=== PATIENT | female | born 1960 | race Asian ===

== ENCOUNTER 2017-08-03 11:12 | Inpatient (IN) | payer OTHER ==
[~2017-08-03] VITALS: Ht 160 cm; Wt 43.9 kg
[2017-08-03] MEDS ORDERED: SODIUM CHLORIDE 0.9% 1L BAG IV* STA ×2 (11:47→13:17)
[2017-08-03] MEDS ORDERED: ACETAMINOPHEN 500 MG TAB PO STA (11:47)
[2017-08-03] MEDS ORDERED: CEFEPIME 2GM/50 ML (PMX) 50 ML IVPB STA (11:47)
[2017-08-03] MEDS ORDERED: VANCOMYCIN 1 GM (PMX) 250 ML IVPB ONE (12:00)
[2017-08-03 12:26] LABS: BASOPHILS % 0.1 % (0.0-2.0); EOSINOPHILS % 0.1 % (0.0-7.0); HEMATOCRIT 35.6 % (37.0-47.0); HEMOGLOBIN 11.5 g/dl (12.0-16.0); LYMPHOCYTES % 23.7 % (15.0-51.0); MEAN CORPUSCULAR HEMOGLOBIN 27.6 pg (29.0-33.0); MEAN CORPUSCULAR HGB CONC 32.3 g/dl (32.0-37.0); MEAN CORPUSCULAR VOLUME 85.6 fl (82.0-101.0); MEAN PLATELET VOLUME 9.2 fl (7.4-10.4); MONOCYTE # 1.2 10^3/ul (0.3-0.9); MONOCYTES % 13.9 % (0.0-11.0); NEUTROPHIL # 5.2 10^3/ul (1.6-7.5); NEUTROPHILS % 61.5 % (39.0-77.0); PLATELET COUNT 481 10^3/UL (140-415); RED BLOOD COUNT 4.16 10^6/ul (4.20-5.40); RED CELL DISTRIBUTION WIDTH 14.4 % (11.5-14.5); WHITE BLOOD COUNT 8.4 10^3/ul (4.8-10.8)
[2017-08-03 12:36] LABS: ADD UMIC YES; UR ASCORBIC ACID NEGATIVE (NEGATIVE); UR BACTERIA FEW /HPF (NONE SEEN); UR BILIRUBIN (Dip) NEGATIVE (NEGATIVE); UR BLOOD (Dip) NEGATIVE (NEGATIVE); UR CLARITY SLIGHTLY CLOUDY (CLEAR); UR COLOR YELLOW (YELLOW); UR GLUCOSE (Dip) NEGATIVE (NEGATIVE); UR KETONES (Dip) NEGATIVE (NEGATIVE); UR LEUKOCYTE ESTERASE (Dip) TRACE Leu/ul (NEGATIVE); UR MUCUS FEW /HPF (NONE SEEN); UR NITRITE (Dip) NEGATIVE (NEGATIVE); UR RBC 0 /HPF (0-5); UR TOTAL PROTEIN (Dip) 1+ mg/dl (NEGATIVE); UR UROBILINOGEN (Dip) NEGATIVE (NEGATIVE)
[2017-08-03 12:39] LABS: ALBUMIN 2.9 g/dl (3.3-4.9); ALBUMIN/GLOBULIN RATIO 0.5; BILIRUBIN,INDIRECT 0.6 mg/dl (0-1.1); BILIRUBIN,TOTAL 0.6 mg/dl (0.2-1.3); CALCIUM 7.7 mg/dl (8.4-10.2); CREATININE 0.5 mg/dl (0.44-1.00); TOTAL PROTEIN 8.6 g/dl (6.1-8.1)
[2017-08-03 12:49] LABS: INR 1.16; PROTIME 14.9 Sec (12.2-14.2); PT RATIO 1.2
[2017-08-03 12:50] LABS: PARTIAL THROMBOPLASTIN TIME 44.5 Sec (25.0-35.0)
[2017-08-03 13:06] LABS: TROPONIN-I 0.058 ng/ml (0.00-0.12)
--- NOTE | 2017-08-03 13:08 | RADRPT ---
PROCEDURE: XR Chest. CLINICAL INDICATION: Sepsis. TECHNIQUE: Single frontal view. COMPARISON: No prior study is available for comparison. FINDINGS: The lungs are clear. The heart size is normal. There is calcification in the aorta consistent with atherosclerosis. There is no pleural effusion. There is no pneumothorax. IMPRESSION: 1. Atherosclerosis. 2. Otherwise normal chest x-ray. RPTAT: QQ .Scott Nair MD, MD Date Time Electronically viewed and signed by .Scott Nair MD, MD on 08/03/2017 13:08 .R/
--- NOTE | 2017-08-03 13:26 | ERD ---
ER Documentation Chief Complaint Chief Complaint dizziness, no appetite, weak HPI This is a 56-year-old female with past medical history of iron deficiency anemia and hypothyroidism. The patient takes Zyloprim as an antacid. She presents to the emergency department today stating that for the past several months she has been extremely weak had a decrease in appetite dizzy and has had a headache. All of the symptoms have been present for roughly 3 months. She has had a 30 pound weight loss in that time. She had no frequency urgency or dysuria. She denies any abdominal pain. She denies any changes in vision. She has no changes in her speech and has not appeared to be more confused. She denies any neck pain. She does indicate that over the past week she has had a tactile fever with shaking and chills. She was seen by her primary care physician and placed on low-dose steroids but is not currently on antibiotics. They did blood work and she was told that she was anemic but did not require a blood transfusion. She denies a productive or nonproductive cough. She has no shortness of breath at rest or exertion. She denies any recent travel, no prolonged immobilization and no chest pain or pressure that radiates to the neck arm back or jaw. ROS All systems reviewed and are negative except as per history of present illness. Allergies Allergies: Coded Allergies: No Known Allergy (Unverified , 08/03/17) PMhx/Soc Hx Miscellaneous Medical Probl: Yes (hyperthyroid, anemic) Hx Alcohol Use: No Hx Substance Use: No Hx Tobacco Use: No Smoking Status: Never smoker Physical Exam Vitals Vital Signs Date Time Temp Pulse Resp B/P Pulse Ox O2 Delivery O2 Flow Rate FiO2 08/03/17 13:29 100.4 85 18 90/65 100 08/03/17 12:12 101.6 80 18 86/61 98 Room Air 08/03/17 11:17 100.8 111 20 97/52 100 Physical Exam Const: [] Head: Atraumatic Eyes: Normal Conjunctiva ENT: Normal External Ears, Nose and Mouth. Neck: Full range of motion..~ No meningismus. Resp: Clear to auscultation bilaterally Cardio: Regular rate and rhythm, no murmurs Abd: Soft, non tender, non distended. Normal bowel sounds Skin: No petechiae or rashes Back: No midline or flank tenderness Ext: No cyanosis, or edema Neur: Awake and alert Psych: Normal Mood and Affect Result Diagram: 08/03/17 1120 08/03/17 1130 Results 24 hrs Laboratory Tests Test 08/03/17 11:20 08/03/17 11:30 08/03/17 12:00 White Blood Count 8.410^3/ul Red Blood Count 4.1610^6/ul Hemoglobin 11.5g/dl Hematocrit 35.6% Mean Corpuscular Volume 85.6fl Mean Corpuscular Hemoglobin 27.6pg Mean Corpuscular Hemoglobin Concent 32.3g/dl Red Cell Distribution Width 14.4% Platelet Count 61152^3/UL Mean Platelet Volume 9.2fl Neutrophils % 61.5% Lymphocytes % 23.7% Monocytes % 13.9% Eosinophils % 0.1% Basophils % 0.1% Nucleated Red Blood Cells % 0.0/100WBC Neutrophils # 5.210^3/ul Lymphocytes # 2.010^3/ul Monocytes # 1.210^3/ul Eosinophils # 0.010^3/ul Basophils # 0.010^3/ul Nucleated Red Blood Cells # 0.010^3/ul Prothrombin Time 14.9Sec Prothrombin Time Ratio 1.2 INR International Normalized Ratio 1.16 Activated Partial Thromboplast Time 44.5Sec Sodium Level 128mmol/L Potassium Level 4.0mmol/L Chloride Level 97mmol/L Carbon Dioxide Level 26mmol/L Anion Gap 9 Blood Urea Nitrogen 14mg/dl Creatinine 0.50mg/dl Glucose Level 98mg/dl Lactic Acid Level 2.2mmol/L Calcium Level 7.7mg/dl Total Bilirubin 0.6mg/dl Direct Bilirubin 0.00mg/dl Indirect Bilirubin 0.6mg/dl Aspartate Amino Transf (AST/SGOT) 69IU/L Alanine Aminotransferase (ALT/SGPT) 36IU/L Alkaline Phosphatase 137IU/L Troponin I 0.058ng/ml Total Protein 8.6g/dl Albumin 2.9g/dl Globulin 5.70g/dl Albumin/Globulin Ratio 0.50 Amylase Level 95U/L Lipase 142U/L Urine Color YELLOW Urine Clarity SLIGHTLY CLOUDY Urine pH 6.0 Urine Specific [place] 1.010 Urine Ketones NEGATIVEmg/dL Urine Nitrite NEGATIVEmg/dL Urine Bilirubin NEGATIVEmg/dL Urine Urobilinogen NEGATIVEmg/dL Urine Leukocyte Esterase TRACELeu/ul Urine Microscopic RBC 0/HPF Urine Microscopic WBC 1/HPF Urine Bacteria FEW/HPF Urine Mucus FEW/HPF Urine Hemoglobin NEGATIVEmg/dL Urine Glucose NEGATIVEmg/dL Urine Total Protein 1+mg/dl Current Medications Medications (Trade) Dose Ordered Sig/Dimitri Route PRN Reason Start Time Stop Time Status Last Admin Dose Admin Sodium Chloride 1360 ml 1,360 ml BOLUS OVER 2 HOURS STAT IV* 08/03/17 11:47 08/03/17 12:04 DC 08/03/17 12:36 Cefepime HCl 50 ml @ 100 mls/hr ONCE STAT IVPB 08/03/17 11:47 08/03/17 12:16 DC 08/03/17 12:36 Vancomycin HCl (Vancocin) 250 ml @ 125 mls/hr ONCE ONCE IVPB 08/03/17 12:00 08/03/17 13:59 08/03/17 12:00 Acetaminophen (Tylenol Tab) 1,000 mg ONCE STAT PO 08/03/17 11:47 08/03/17 12:04 DC 08/03/17 12:36 Sodium Chloride (NS) 1,360 ml BOLUS OVER 2 HOURS STAT IV* 08/03/17 13:17 08/03/17 13:32 DC Procedures/MDM The patient presented to the emergency department with a subacute headache dizziness that began within weeks to months of onset. My differential diagnosis included but was not limited to chronic subdural hematoma, brain tumor, brain abscess, chronic sinusitis, temporal arteritis, temporomandibular joint syndrome , psuedotumor cerebri, glaucoma, migrane, HTN, intracranial hemorrhage or cerebral ischemia. This was not the patients worse headache of their life. The patient had a complete neurologic and fundoscopic exam performed by myself that was normal with no focal neurological deficits or retinal hemorrhage. The patient stated this headache was not severe or distinct from other headaches and the history with the physical exam findings did not likely suggest SAH. Therefore, I did not feel it was clinically necessary to perform a lumbar puncture and CSF analysis. The patient was febrile upon arrival into the emergency department with no nuchal rigidity and my clinical suspicion was low for acute meningitis. However I was concerned that the significant weight loss generalized myalgias that has been present for the past several months as I could not rule out an underlying neoplastic process. Blood cultures and urine cultures were obtained. The patient was given a 30 cc/kg bolus of normal saline. Her lactic acid was elevated which was thought to be secondary to severe dehydration but could not rule out underlying sepsis of unclear etiology and therefore the patient was given vancomycin and Zosyn. Chest radiograph ordered reviewed by myself showed no acute infiltrates pneumothorax or pleural effusions and no masses were present. CT scan of the patient's head showed no acute intracerebral hemorrhage mass-effect or midline shift. 12 Lead EKG tracing ordered and reviewed by myself showed: Normal sinus rhythm of 99 bpm and no arrhythmia. VT interval normal. QRS duration normal. No ST segment elevation No ST segment depression. No changes consistent with acute ischemia. An influenza swab is currently pending at this time. Patient's infectious symptoms have not stabilized and the patient is at risk of rapid decompensation. The patient will be admitted for careful hydration, antibiotic therapy, and infectious source control. Severe Sepsis Assessment: Infectious Source: Unclear etiology End organ damage indicated by: Lactate > 2.0 mmol/L Hypotension( SBP < 90 or >40 mmHG drop or MAP < 65) Severe Sepsis Managment: Blood Cultures X 2 before broad spectrum antibiotics initiated within 3 hours of recognition. 30 ml/kg NS bolus Completed Initial Lactate: 2.2 Repeat Lactate pending I considered further perfusion assessment with CVP measurement, SCVO2, bedside ultrasound volume assessment, passive leg raise, trial of further fluid bolus. And preceded with IV fluids. Critical Care: Time: 50 minutes Treatments/Evaluations: Close monitoring and treatment of unstable vital signs, cardiorespiratory, and neurologic status, while maintaining tight balance of fluid, respiratory, and cardiac interventions. Time does not include performing any of the above billable procedures. Departure Diagnosis: Primary Impression: Dizziness Additional Impression: Sepsis Sepsis type: sepsis due to unspecified organism Qualified Code: A41.9 - Sepsis, due to unspecified organism Condition: Serious TIFFANIE MCMULLEN Aug 03, 2017 13:26
[2017-08-03 13:29] VITALS: Ht 160 cm; Wt 43.9 kg
--- NOTE | 2017-08-03 14:34 | RADRPT ---
PROCEDURE: CT Brain without contrast. CLINICAL INDICATION: Headaches. Neurologic deficit TECHNIQUE: A CT of the brain was performed on multidetector high-resolution CT scanner utilizing a xial sections from the skull base through the vertex without contrast. One or more of the following dose reduction techniques were used: Automated exposure control, Adjustment of the mA and/or kV acc ording to patient size, and/or use of iterative reconstruction technique. DOSE: CTDI = 45 mGy and the DLP = 720 mGy-cm. COMPARISON: None available FINDINGS: No acute intracranial hemorrhage, significant mass effect or midline shift. The walsh-white different iation is grossly preserved. The ventricles are normal in size. Mild generalized volume loss. No significant opacification of the visualized paranasal sinuses or mastoids. IMPRESSION: No acute intracranial findings. RPTAT: AA .Jhon Quigley MD, MD Date Time Electronically viewed and signed by .Jhon Quigley MD, on 08/03/2017 14:34 .T/
[2017-08-03] MEDS ORDERED: SOD CHLORIDE 0.9% 1,000 ML IV STA ×2 (14:47→15:34)
[2017-08-03] MEDS ORDERED: ACETAMINOPHEN 325 MG TAB PO PRN (16:00)
[2017-08-03] MEDS ORDERED: NACL 0.9% 3 ML SYG IV SCH (16:00)
[2017-08-03] MEDS ORDERED: HYDROCODONE/APAP (5/325) TAB PO PRN (16:00)
[2017-08-03] MEDS ORDERED: ONDANSETRON 4 MG INJ IV PRN ×2 (16:00)
[2017-08-03] MEDS ORDERED: NORepinephrine 8MG/250 ML (PMX 250 ML IV SCH (16:30)
[2017-08-03] MEDS ORDERED: VANCOMYCIN IV PER PHARMACY XX SCH (16:30)
--- NOTE | 2017-08-03 16:53 | HP ---
Date/Time of Note Date/Time of Note DATE: 08/03/17 TIME: 16:49 Assessment/Plan VTE Prophylaxis VTE Prophylaxis Intervention: SCD's Assessment/Plan Chief Complaint/Hosp Course 1. Severe sepsis with underlying lactic acidosis, tachycardia, and febrile illness with unclear etiology along with evidence of early septic shock unless otherwise proven. CT scan of the abdomen and pelvis is pending at this time. Infectious diseases will be involved for antibiotic management. Pancultures will be obtained. The patient will be started on IV pressors for BP support since the BP is not improving despite multiple bags of normal saline. 2. Hyponatremia. Etiology unclear. Etiology could be excess free water, excess sodium loss, or others. The patient's hyponatremia will be corrected slowly. Serum and urine osmolality will be obtained. Urine sodium level will be obtained. 3. Unintentional weight loss. Most probably secondary to poor oral intake. However, will rule out other etiologies. Serum HIV panel will be obtained. Tumor markers will be obtained to rule out any underlying malignancy. 4. Anemia. Normocytic and hypochromic. Etiology unclear. Will obtain an iron panel. Will also obtain a folate and vitamin B12 levels. Stool for occult blood will be obtained. 5. Transaminitis without hyperbilirubinemia. Etiology unclear. Will obtain a CT scan of the abdomen and pelvis. Will obtain hepatitis panel. Will avoid hepatotoxic medications. 6. Depression. No suicidal ideation. We will start the patient on SSRIs. 7. Protein calorie malnutrition. Moderate to severe. The patient will be provided with dietary supplements. A dietary consult will be obtained. Plan: The patient will be admitted to inpatient intensive care unit. The patient will be started on a regular diet. The patient will be started on DVT prophylaxis and gastrointestinal prophylaxis. The patient will remain a full code. Activities will be bedrest. Inflammatory markers including CRPR and ESR will be obtained to evaluate for any chronic inflammatory conditions including any RA, since the patient was complaining of B/L arm/hand stiffness. A serum uric acid level will also be obtained. A 2D echocardiogram will also be obtained, for the BNP was elevated and the CXR showed evidence of atherosclerosis. Other basic labs including a thyroid panel, hemoglobin A1C, and fasting lipid panel will be obtained. The rest of the patient's management will be based on the clinical course, inputs from consultants and the results of diagnostic studies. Based on the patient's clinical presentation, she most probably requires more than 2 midnights' stay for further management and evaluation of her clinical presentation. The case and management of this patient was fully discussed with . More than 90 minutes were spent on the history and physical of this patient that involved talking with the patient's family to get more information and talking to the ER personnel. Problems: HPI/ROS Admit Date/Time Admit Date/Time Hx of Present Illness Reason for admission: Multiple complaints. Consultants 1. Shalom Simon MD, Infectious Diseases. This is a 56-year-old female with past medical history as reported by the patient's sister Briana only iron deficiency and gout. She came to the emergency room because of multiple complaints including poor appetite, feeling weakness, ataxia, dizziness, depressed with poor energy, hypersomnia, etc. Per the patient's sister Briana, the patient lost her job approximately 3 months ago because of numbness and instability of her bilateral arms. 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 The patient is unmarried and has no kids. Since the loss of the job, the patient has been feeling depressed and was having poor appetite and was bedridden more or less for most of the time. She was seen at an outpatient facility a while ago where she was diagnosed with iron deficiency and probably gout. As per the patient's sister, the patient was feeling hopeless although she did not have the energy to express any suicidal ideations. The patient also had a reported fall approximately 1 month ago because of her ataxic gait. The patient was unable to provide a good history. The patient seemed to be apathic. In the emergency room, the patient was noticed to be hypotensive. The patient also had febrile episodes with the a T-max of 101.6F. The patient also had underlying leukocytosis. The patient was noticed to have hyponatremia. The patient was treated with IV vancomycin, IV cefepime and multiple bags of IV normal saline with minimal improvement in the patient's blood pressure. The patient's brain CT scan was negative for any acute intracranial findings. The patient's the chest x-ray showed atherosclerosis with no acute findings. ROS Constitutional: fatigue, febrile, poor po, weight change Eyes: no complaints ENT: no complaints Respiratory: no complaints Cardiovascular: no complaints Gastrointestinal: decreased appetite Genitourinary: no complaints Musculoskeletal: no complaints Skin: no complaints Neurologic: dizziness, other (unsteady gait) Endocrine: no complaints Lymphatic: no complaints Immunologic: no complaints PMH/Family/Social Past Medical History Medical History: other (Gout, iron deficiency) Past Surgical History Past Surgical Hx: no surgical history Social History Originally from [facility]. The patient currently not working. 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 The patient is unmarried. Has no kids. Lives with her brother. Alcohol Use: none Smoking Status: Never smoker Drug Use: none Exam/Review of Systems Vital Signs Vitals Vital Signs Date Time Temp Pulse Resp B/P Pulse Ox O2 Delivery O2 Flow Rate FiO2 08/03/17 15:20 88 17 88/66 100 Room Air 08/03/17 14:40 99.8 Exam Exam General: Thin, malnourished, pale looking 56 year-old female lying in bed in no apparent distress. HEENT: Normocephalic, atraumatic. Eyes: Anicteric sclerae, conjunctivae clear. ENT: Nasal septum midline, oral mucosa is dry. Neck supple, JVD noticed. Respiratory: Bilaterally diminished breath sounds. No use of accessory muscles of respiration. No adventitious breath sounds. Cardiovascular: S1, S2 heard. Regular rate and rhythm. Abdomen: Nontender, distended. Bowel sounds positive in all 4 quadrants. Genitourinary: Deferred. Extremities: No cyanosis, no clubbing, no edema. Peripheral pulses palpable. Neurologic: Cranial nerves II through XII grossly intact. The patient is awake, alert, and oriented. Labs Result Diagram: 08/03/17 1120 08/03/17 1130 Medications Medications Current Medications Ondansetron HCl (Zofran Inj) 4 mg Q6H PRN IV NAUSEA AND/OR VOMITING; Start 08/03/17 at 16:00 Acetaminophen (Tylenol Tab) 650 mg Q6H PRN PO PAIN LEVEL 1-3 OR FEVER; Start 08/03/17 at 16:00 Acetaminophen/ Hydrocodone Bitart ([place] (5/325)) 1 tab Q6H PRN PO PAIN LEVEL 4 -6; Start 08/03/17 at 16:00 Famotidine 20 mg 20 mg Q12 IV ; Start 08/03/17 at 21:00 Norepinephrine 16 mg/Dextrose 500 ml @ 1.87 mls/hr TITRATE IV ; Start 08/03/17 at 16:30 Norepinephrine 250 ml @ 1.875 mls/ hr TITRATE IV ; Start 08/03/17 at 16:30; Stop 08/03/17 at 23:00 Cefepime HCl 50 ml @ 100 mls/hr Q12 IVPB ; Start 08/03/17 at 21:00 Sodium Chloride 1,000 ml @ 60 mls/hr [id number] IV ; Start 08/03/17 at 16:30 Vancomycin HCl/ Dextrose/Water (Vancocin/D5W) 150 ml @ 75 mls/hr Q12H IVPB ; Start 08/03/17 at 22:[address] IMPRESSION: No acute intracranial findings. CXR IMPRESSION: 1. Atherosclerosis. 2. Otherwise normal chest x-ray. 12-Lead EKG Normal sinus rhythm. MAY WADE NP Aug 03, 2017 16:53
--- NOTE | 2017-08-03 17:07 | RADRPT ---
PROCEDURE: CT Abdomen and Pelvis without contrast. CLINICAL INDICATION: Abdominal pain TECHNIQUE: CT scan of the abdomen and pelvis without contrast was performed. The patient was scann ed without intravenous contrast. Coronal and sagittal reformatted images were obtained from the axi al source images. Use of iterative reconstruction technique was employed. Images were reviewed on a high-resolution PACS workstation. images. The calculated radiation dose measures 224.54 mGy centimet ers. The CTDI measures 4.44 mGy. One or more of the following dose reduction techniques were used: - Automated exposure control. - Adjustment of the mA and/or kV according to patient size . - Use of iterative reconstruction technique. Images were reviewed on a high-resolution PACS workstation COMPARISON: None. FINDINGS: CT abdomen: The lung bases are markable for interstitial prominence and ground-glass densities at the reflective of edema. The heart size is enlarged, without pericardial thickening or effusion. The liver is no rmal in size and demonstrates decreased density without focal mass or intrahepatic biliary dilatatio n. The spleen is normal in size and homogeneous in density. The stomach is partially collapsed, bu t is grossly unremarkable. The pancreas as visualized is normal. The gallbladder and biliary tree are unremarkable and there is no evidence for biliary dilatation. The adrenal glands are symmetric and normal. The kidneys are symmetrically unremarkable as well. No renal calculus or obstructive uropathy or mass lesion is seen. The aorta is of normal caliber. There is no retroperitoneal lymphadenopathy. The hussain hepatis nellie on is clear. The bowel and mesentery, as visualized, are equally unremarkable. CT pelvis: The small bowel loops situated within the pelvis are unremarkable. Myomatous uterus with calcificat ions The pelvic sidewalls and inguinal regions are clear. The sigmoid colon and rectum are not thi ckened or dilated normal appearance of the appendix. No mass, lymphadenopathy, or free fluid is see n. No acute inflammation is seen. The bladder is distended. The surrounding osseous structures are remarkable for degenerative spondylosis of the spine. No ost eolytic or osteoblastic lesion is detected. IMPRESSION: 1. No acute inflammatory process seen within the abdomen or pelvis on this noncontrast examination. 2. Hepatic steatosis. 3. Myomatous uterus with calcifications. RPTAT: UU .Luis Mustafa MD, MD Date Time Electronically viewed and signed by .Luis Mustafa MD, MD on 08/03/2017 17:06 .d/
[2017-08-03 17:19] LABS: URIC ACID 5.4 mg/dl (3.1-7.9)
[2017-08-03] MEDS: SOD CHLORIDE 0.9% 1,000 ML IV SCH (17:30)
[2017-08-03 17:36] LABS: BARBITURATES Negative (NEGATIVE); BENZODIAZEPINES Negative (NEGATIVE); CANNABINOIDS Negative (NEGATIVE); COCAINE Negative (NEGATIVE)
[2017-08-03 17:37] LABS: C-REACTIVE PROTEIN 14.9 mg/dl (0.0-0.9)
[2017-08-03 17:37] LABS: OPIATES Negative (NEGATIVE)
[2017-08-03 17:46] LABS: THYROID STIMULATING HORMONE 5.66 MIU/L (0.465-4.680)
[2017-08-03 17:56] LABS: CANCER ANTIGEN 125 43.7 U/ml (0.0-35.0); CARCINOEMBRYONIC ANTIGEN 1.9 ng/ml (0.0-5.0)
--- NOTE | 2017-08-03 17:59 | QN ---
Documentation Comment This patient was endorsed to me by Dr. Martinez pending CT imaging of the brain. The patient CT imaging of the brain is negative. The patient was found to have Sirs criteria without source. She has a prolonged history of these symptoms. Based on the patient's presentation there is significant concern for malignancy. Because there is no clear source at this time I have ordered a CT of the abdomen and pelvis. This is to evaluate for any acute intra-abdominal process or malignancy of pelvic origin. The CT imaging is read by the radiologist is nonspecific but no acute intra-abdominal process. Reviewing the patient's laboratory testing the patient's BNP is elevated. This is of unclear significance. However given the patient's low-grade fever, hypotension and lactic acidosis it could be cash posting representative of a pulmonary embolism. I have ordered a CTPA for this patient. Her blood pressure remains hypotensive but mean arterial pressures remain greater than 65. No indication for central line. I have ordered 2 more liters of fluids and the patient has since stabilized. She is resting comfortably in the room. Diagnostic imaging was ordered in conjunction with conversations with the admitting team. I also felt the patient would benefit from upgrade to ICU. These changes have been made and agreed upon by the admitting team. Accepting care team and consultations: I discussed the current laboratory data, diagnostic imaging and emergency care provided. Admitting team: Dr. Mckeon Admitting team indication: Insurance directed CTPA pending and to be followed by admitting team. Pending ICU bed. PALOMO BISHOP MD Aug 03, 2017 17:59
[2017-08-03 18:02] LABS: CANCER ANTIGEN 19-9 < 1.4 U/ml (0.0-37.0)
[2017-08-03 18:02] LABS: IRON 18 ug/dl (35-150)
[2017-08-03 18:12] LABS: TOTAL IRON BINDING CAPACITY 153 ug/dl (241-421)
[2017-08-03] MEDS ORDERED: SOD CHLORIDE 0.9% 100 ML ONE (18:38)
[2017-08-03] MEDS ORDERED: IOHEXOL 100 ML ONE (18:38)
--- NOTE | 2017-08-03 19:35 | CONS ---
DATE OF ADMISSION: 08/03/2017 DATE OF CONSULTATION: 08/03/2017 TYPE OF CONSULTATION: Infectious Disease. REASON FOR CONSULTATION: Antibiotic management. HISTORY OF PRESENT ILLNESS: Ana Mcdermott is a 56-year-old female with numerous problems who w as admitted with severe sepsis and is being seen for antibiotic management. Her past problems inclu de only iron deficiency anemia and gout. The patient was brought to the emergency room with complai nts of dizziness, ataxia, feelings of weakness and poor appetite. She also has hypersomnia. She lo st her job 3 months ago because of numbness and instability of her arms bilaterally. She is unmarri ed, has no children. The patient has been depressed with feelings of hopelessness since she lost he r job. She had reported fall 1 month ago secondary to ataxic gait. In the emergency room, she was hypotensive with a temperature of 101.6. Her white count was 8.4, H and H 11.5 and 35.6, platelet c ount 481,000. Her sodium was only 128. BUN and creatinine 14/0.5, her glucose was 98. Patient was begun on IV vancomycin and cefepime. She also had normal saline. A CT scan of the brain was negati ve for any acute intracranial findings. Chest x-ray also showed atherosclerosis with no acute findi ngs. PAST MEDICAL HISTORY: Operations: None. FAMILY HISTORY: Noncontributory. SOCIAL HISTORY: She is unmarried. She does not smoke, drink or abuse drugs. ALLERGIES: NONE TO PENICILLIN, SULFA OR FOODS. MEDICATIONS: Per chart. REVIEW OF SYSTEMS: As per HPI. PHYSICAL EXAMINATION: GENERAL: The patient is a thin, malnourished female who is apathetic, in no acute distress. VITAL SIGNS: Stable. T-max of 99.8. SKIN: Without generalized rash. HEENT: Within normal limits. NECK: Supple. LYMPH NODES: None palpable. CHEST: Decreased breath sounds at the bases. HEART: Without murmur or gallop. ABDOMEN: Soft, nontender, without organosplenomegaly or masses. EXTREMITIES: Without cyanosis, clubbing, or edema. RECTAL AND GENITAL: Exams deferred. NEUROLOGIC: No focal neurological abnormalities. IMPRESSION AND PLAN: The patient comes in now. She has a lactic acid of 1.9. Her iron saturation is 12%. Her urine is negative for nitrites and trace leukocyte esterase but only 1 white cell per h igh powered field. Her toxicology screen is negative. Her sed rate is 70, which is elevated. Her CT scan of the abdomen and pelvis does show hepatic steatosis, no acute inflammatory process. Her n eurological examination is not remarkable. We are going to do a fever workup, blood cultures have b een ordered, urine cultures ordered, and will continue her on her vancomycin and cefepime. I will d ictate my findings to the hospitalist. However, because of the history of ataxia and weakness, I wo uld consider a neurological evaluation as well. Dictated By: ANDREW VAIL MD, JD/ALBERTA Conf#: [id number] DID#: [id number]
--- NOTE | 2017-08-03 19:49 | RADRPT ---
PROCEDURE: CT Pulmonary Angiogram. CLINICAL INDICATION: Chest pain and shortness of breath. TECHNIQUE: CT pulmonary angiogram and a CT scan of the chest with contrast was performed. The pat ient was scanned following the uncomplicated intravenous administration of 100 cc of Omnipaque-350 i ntravenous contrast. 2-D coronal reformatted images were obtained from the axial source images. In addition, 3-D post processing was performed. Total exam DLP is 290.14 mGy-cm. CTDIvol is 56.34 mG y. One or more of the following dose reduction techniques were used: Automated exposure control, ad justment of the mA and/or kV according to patient size, use of iterative reconstruction technique. COMPARISON: None available. FINDINGS: The pulmonary arteries are normal with no filling defect or lack of enhancement to suggest pulmonary artery embolism. Mild atelectasis is present at the lung bases posteriorly. The lungs are otherwise clear. There is no pulmonary airspace or interstitial disease. There is no pulmonary nodule or mass lesion. There is no pneumothorax. There is no mediastinal or hilar lymphadenopathy or mass. There is no pleural effusion. There is no pericardial effusion. Calcification is present in the aorta consistent with atherosclerosis. The thoracic aorta is otherwi se normal with no aneurysm or dissection. The heart is enlarged. Images through the upper abdomen demonstrate normal visualized portions of the liver, spleen, and ad renals. The osseous structures are normal with no fracture or lytic lesion. IMPRESSION: 1. Normal CT pulmonary angiogram with no evidence of pulmonary artery embolism. 2. Atherosclerosis. 3. Mild atelectasis at the lung bases posteriorly. 4. Cardiomegaly. 5. Otherwise unremarkable CT scan of the chest. RPTAT: QQ .Scott Nair MD, Date Time Electronically viewed and signed by .Scott Nair MD, on 08/03/2017 19:49 .R/
[2017-08-03] MEDS: FAMOTIDINE 20 MG INJ IV SCH (21:52)
[2017-08-03] MEDS: CEFEPIME 1GM/50 ML (PMX) 50 ML IVPB SCH (21:52)
[2017-08-03] MEDS: VANCOMYCIN 750 MG in DEXTROSE 5% 150 ML IVPB SCH (23:12)
[2017-08-04] VITALS (15 sets, daily range): BP systolic 100–129; BP diastolic 60–82; PULSE 65–103; RESP 18–31; TEMP 99.4
[2017-08-04 06:23] LABS: HAAIG REFLEX REFLEX FILED
[2017-08-04 06:29] LABS: BASOPHILS % 0.2 % (0.0-2.0); EOSINOPHILS % 0.5 % (0.0-7.0); HEMATOCRIT 37.9 % (37.0-47.0); HEMOGLOBIN 11.6 g/dl (12.0-16.0); LYMPHOCYTES # 1.1 10^3/ul (0.8-2.9); LYMPHOCYTES % 19.9 % (15.0-51.0); MEAN CORPUSCULAR HEMOGLOBIN 26.7 pg (29.0-33.0); MEAN CORPUSCULAR HGB CONC 30.6 g/dl (32.0-37.0); MEAN CORPUSCULAR VOLUME 87.1 fl (82.0-101.0); MEAN PLATELET VOLUME 9.5 fl (7.4-10.4); MONOCYTE # 0.8 10^3/ul (0.3-0.9); MONOCYTES % 13.9 % (0.0-11.0); NEUTROPHIL # 3.7 10^3/ul (1.6-7.5); NEUTROPHILS % 64.6 % (39.0-77.0); PLATELET COUNT 453 10^3/UL (140-415); RED BLOOD COUNT 4.35 10^6/ul (4.20-5.40); RED CELL DISTRIBUTION WIDTH 14.6 % (11.5-14.5); WHITE BLOOD COUNT 5.7 10^3/ul (4.8-10.8)
[2017-08-04 07:05] LABS: CHOL/HDL RATIO 9.1 RATIO; CHOLESTEROL 146 mg/dl (100-200); HDL CHOLESTEROL 16 mg/dl (37-92); MAGNESIUM 1.9 mg/dl (1.7-2.5); PHOSPHORUS 3.1 mg/dl (2.5-4.9); TRIGLYCERIDES 226 mg/dl (0-149)
[2017-08-04 07:07] LABS: CK-MB 6.93 ng/ml (0.0-2.4); TROPONIN-I 0.12 ng/ml (0.00-0.12)
[2017-08-04 07:20] LABS: ALBUMIN 2.5 g/dl (3.3-4.9); ALBUMIN/GLOBULIN RATIO 0.48; BILIRUBIN,INDIRECT 0.4 mg/dl (0-1.1); BILIRUBIN,TOTAL 0.4 mg/dl (0.2-1.3); CREATININE 0.41 mg/dl (0.44-1.00); POTASSIUM 3.8 mmol/L (3.5-5.1); TOTAL PROTEIN 7.7 g/dl (6.1-8.1)
[2017-08-04 07:42] LABS: HEPATITIS B CORE ANTIBODY NEGATIVE (NEGATIVE)
[2017-08-04 08:02] LABS: FOLATE > 20.0 ng/ml (2.8-20.0)
[2017-08-04] MEDS: CEFEPIME 1GM/50 ML (PMX) 50 ML IVPB SCH ×2 (08:47→21:00)
[2017-08-04] MEDS: FAMOTIDINE 20 MG INJ IV SCH ×2 (08:48→23:58)
[2017-08-04] MEDS: SOD CHLORIDE 0.9% 1,000 ML IV SCH (08:48)
[2017-08-04] MEDS: SERTRALINE 50 MG TAB PO SCH (08:48)
--- NOTE | 2017-08-04 10:27 | PN ---
Date/Time of Note Date/Time of Note DATE: 08/04/17 TIME: 10:26 Assessment/Plan VTE Prophylaxis VTE Prophylaxis Intervention: SCD's Lines/Catheters [facility] Peripheral IV Urinary Cath still in place: No Assessment/Plan Chief Complaint/Hosp Course Assessment and plan 1. Sepsis secondary to suspect UTI. Patient was noted with lactic acidosis as well as fever. Afebrile present. Status post vasopressors. Continue with antibiotic regimen. 2. Hyponatremia. Continue IV hydration. Improving at present. 3. Reported weight loss. Secondary to poor oral intake. Encourage oral intake. Follow-up on tumor markers. 4. Anemia. Iron deficiency noted. Will start on iron supplement 5. Transaminitis. CT scan of the abdomen and pelvis were negative for any acute findings. Hepatitis serology negative. Slowly improving at present. Will monitor for now. Continue IV hydration 6. Depression. Continue on Zoloft. Disposition plan: Off vasopressors at this time. Plan to transfer to [facility]. We will follow-up Discussed plan of care with Dr. Jacob Critical CARE time: 30 minutes Problems: Subjective 24 Hr Interval Summary Free Text/Dictation Alert and oriented. No signs or symptoms of distress. Comfortable at present. Exam/Review of Systems Vital Signs Vitals Vital Signs Date Time Temp Pulse Resp B/P Pulse Ox O2 Delivery O2 Flow Rate FiO2 08/04/17 08:00 101 08/04/17 07:00 99.3 25 107/66 98 Room Air Intake and Output 08/03/17 08/03/17 08/04/17 15:00 23:00 07:00 Intake Total 50 ml 2610 ml 11.24 ml Output Total 0 ml Balance 50 ml 2610 ml 11.24 ml Exam Constitutional: alert, oriented Psych: other (No depression noted at this time) Head: normocephalic Neck: non-tender, supple Respiratory: clear to auscultation, normal air movement Cardiovascular: other (Regular rate to tachycardic) Gastrointestinal: non-tender, soft Musculoskeletal: nl extremities to inspection Extremities: normal pulses 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, nl mental status, nl speech Skin: nl turgor Results Result Diagram: 08/04/17 0532 08/04/17 0532 Results 24 hrs Laboratory Tests Test 08/03/17 11:20 11/5/17 11:30 08/03/17 11:47 08/03/17 12:00 White Blood Count 8.4 Red Blood Count 4.16 L Hemoglobin 11.5 L Hematocrit 35.6 L Mean Corpuscular Volume 85.6 Mean Corpuscular Hemoglobin 27.6 L Mean Corpuscular Hemoglobin Concent 32.3 Red Cell Distribution Width 14.4 Platelet Count 481 H Mean Platelet Volume 9.2 Neutrophils % 61.5 Lymphocytes % 23.7 Monocytes % 13.9 H Eosinophils % 0.1 Basophils % 0.1 Nucleated Red Blood Cells % 0.0 Neutrophils # 5.2 Lymphocytes # 2.0 Monocytes # 1.2 H Eosinophils # 0.0 Basophils # 0.0 Nucleated Red Blood Cells # 0.0 Prothrombin Time 14.9 H Prothrombin Time Ratio 1.2 INR International Normalized Ratio 1.16 Activated Partial Thromboplast Time 44.5 H Sodium Level 128 L Potassium Level 4.0 Chloride Level 97 Carbon Dioxide Level 26 Anion Gap 9 Blood Urea Nitrogen 14 Creatinine 0.50 Glucose Level 98 Lactic Acid Level 2.2 *H Uric Acid 5.4 Calcium Level 7.7 L Ferritin 1170.0 H Total Bilirubin 0.6 Direct Bilirubin 0.00 Indirect Bilirubin 0.6 Aspartate Amino Transf (AST/SGOT) 69 H Alanine Aminotransferase (ALT/SGPT) 36 Alkaline Phosphatase 137 H Troponin I 0.058 C-Reactive Protein 14.9 H Total Protein 8.6 H Albumin 2.9 L Globulin 5.70 H Albumin/Globulin Ratio 0.50 Amylase Level 95 Lipase 142 Carcinoembryonic Antigen 1.9 CA 19-9 Antigen < 1.4 CA 125 Antigen 43.7 H Thyroid Stimulating Hormone (TSH) 5.660 H Erythrocyte Sedimentation Rate 70 H Hemoglobin A1c 5.1 Urine Color YELLOW Urine Clarity SLIGHTLY CLOUDY A Urine pH 6.0 Urine Specific [place] 1.010 Urine Ketones NEGATIVE Urine Nitrite NEGATIVE Urine Bilirubin NEGATIVE Urine Urobilinogen NEGATIVE Urine Leukocyte Esterase TRACE A Urine Microscopic RBC 0 Urine Microscopic WBC 1 Urine Bacteria FEW A Urine Mucus FEW A Urine Hemoglobin NEGATIVE Urine Osmolality 298 Urine Random Sodium 15 L Urine Glucose NEGATIVE Urine Total Protein 1+ H Urine Opiates Screen Negative Urine Barbiturates Negative Urine Amphetamines Screen Negative Urine Benzodiazepines Screen Negative Urine Cocaine Screen Negative Urine Cannabinoids Negative Test 08/03/17 13:38 08/03/17 13:42 08/03/17 16:45 08/04/17 05:31 B-Type Natriuretic Peptide 3030 H 2660 H Lactic Acid Level 1.9 Osmolality 278 L Iron Level 18 L Total Iron Binding Capacity 153 L Percent Iron Saturation 12 L Alpha Fetoprotein < 0.83 Free Thyroxine 1.75 Creatine Kinase 123 Creatine Kinase Index 5.6 Creatinine Kinase MB (Mass) 6.93 H Troponin I 0.120 Vitamin B12 Level > 1000 H Folate > 20.0 H Hepatitis B Surface Antigen NEGATIVE Hepatitis B Core Total Antibody NEGATIVE Hepatitis C Antibody NEGATIVE Test 08/04/17 05:32 White Blood Count 5.7 # Red Blood Count 4.35 Hemoglobin 11.6 L Hematocrit 37.9 Mean Corpuscular Volume 87.1 Mean Corpuscular Hemoglobin 26.7 L Mean Corpuscular Hemoglobin Concent 30.6 L Red Cell Distribution Width 14.6 H Platelet Count 453 H Mean Platelet Volume 9.5 Neutrophils % 64.6 Lymphocytes % 19.9 Monocytes % 13.9 H Eosinophils % 0.5 Basophils % 0.2 Nucleated Red Blood Cells % 0.0 Neutrophils # 3.7 Lymphocytes # 1.1 Monocytes # 0.8 Eosinophils # 0.0 Basophils # 0.0 Nucleated Red Blood Cells # 0.0 Sodium Level 137 Potassium Level 3.8 Chloride Level 110 # Carbon Dioxide Level 22 Anion Gap 9 Blood Urea Nitrogen 10 Creatinine 0.41 L Glucose Level 92 Calcium Level 7.0 L Phosphorus Level 3.1 Magnesium Level 1.9 Total Bilirubin 0.4 Direct Bilirubin 0.00 Indirect Bilirubin 0.4 Aspartate Amino Transf (AST/SGOT) 66 H Alanine Aminotransferase (ALT/SGPT) 33 Alkaline Phosphatase 123 H Total Protein 7.7 Albumin 2.5 L Globulin 5.20 H Albumin/Globulin Ratio 0.48 Triglycerides Level 226 H Cholesterol Level 146 LDL Cholesterol, Calculated 85 HDL Cholesterol 16 L Cholesterol/HDL Ratio 9.1 HIV (1&2) Antibody NEGATIVE Medications Medications Current Medications Ondansetron HCl (Zofran Inj) 4 mg Q6H PRN IV NAUSEA AND/OR VOMITING; Start 08/03/17 at 16:00 Acetaminophen (Tylenol Tab) 650 mg Q6H PRN PO PAIN LEVEL 1-3 OR FEVER; Start 08/03/17 at 16:00 Acetaminophen/ Hydrocodone Bitart ([place] (5/325)) 1 tab Q6H PRN PO PAIN LEVEL 4 -6; Start 08/03/17 at 16:00 Famotidine 20 mg 20 mg Q12 IV Last administered on 08/04/17 08:48; Admin Dose 20 MG; Start 08/03/17 at 21:00 Cefepime HCl 50 ml @ 100 mls/hr Q12 IVPB Last administered on 08/04/17 08:47 ; Admin Dose 100 MLS/HR; Start 08/03/17 at 21:00 Sodium Chloride 1,000 ml @ 60 mls/hr [id number] IV Last administered on 08:48; Admin Dose 60 MLS/HR; Start 08/03/17 at 16:30 Vancomycin HCl/ Dextrose/Water (Vancocin/D5W) 150 ml @ 75 mls/hr Q12H IVPB Last administered on 08/03/17 23:12; Admin Dose 75 MLS/HR; Start 08/03/17 at 22 :00 Sertraline HCl (Zoloft) 50 mg DAILY PO Last administered on 08/04/17 08:48; Admin Dose 50 MG; Start 08/04/17 at 09:00 FLOYD PABON Aug 04, 2017 10:27
[2017-08-04] MEDS: VANCOMYCIN 750 MG in DEXTROSE 5% 150 ML IVPB SCH (10:30)
[2017-08-04] MEDS: FERROUS SULFATE (EC) 325 MG TAB PO SCH (10:43)
--- NOTE | 2017-08-04 12:58 | PN ---
DATE: 08/04/2017 SUBJECTIVE: Patient is alert, feels good, Levophed was discontinued today. Denies pain, discomfort . No fevers. VITAL SIGNS: T-max 100.1, temperature current 99.3, pulse 96, respirations 20, blood pressure 120/6 9, saturation 100 on room air. MICROBIOLOGY: Blood culture on admission growing gram-positive cocci in pairs and clusters. Urine culture pending. Influenza swab negative. LABORATORY DATA: WBC 5.7, no shift, no bands. BUN 10, creatinine 0.41. DIAGNOSTICS: CT of the chest revealed no evidence of PE and cardiomegaly, mild atelectasis at the l vianney bases posteriorly. CT of the pelvis and abdomen revealed no acute inflammatory process. Hepati c steatosis and mild with calcifications. Brain CT revealed no acute intracranial findings. ANTIMICROBIALS: The patient is on: 1. Vancomycin. 2. Cefepime. PHYSICAL EXAMINATION: GENERAL: A well-developed, well-nourished, middle-aged woman who is alert, in no distress. HEENT: Head atraumatic, normocephalic. Sclerae anicteric. Buccal mucosa pink. NECK: Supple. CHEST: Rise symmetrical. Breath sounds clear. HEART: S1, S2. ABDOMEN: Soft. Bowel tones present. EXTREMITIES: Without cyanosis. ASSESSMENT: 1. Resolving sepsis status post shock. 2. Bacteremia with blood culture growing gram-positive cocci. 3. Anemia. 4. Transaminitis. PLAN: The patient remains stable, overall improving. Final cultures are pending. We are going to order 2D echo to rule out vegetation. Dictated By: FOSTER SCHAFER TECHNOLOGY INTERN for ANDREW KEENE/ALBERTA Conf#: [id number] DID#: [id number]
[2017-08-04] MEDS ORDERED: VANCOMYCIN 1 GM in NS 250 ML IVPB SCH (23:45)
[2017-08-05] MEDS: SOD CHLORIDE 0.9% 1,000 ML IV SCH ×2 (01:50→17:43)
[2017-08-05 02:01] VITALS: BP 110/63; RESP 20
[2017-08-05 06:14] LABS: BASOPHILS % 0.4 % (0.0-2.0); EOSINOPHILS # 0.1 10^3/ul (0.0-0.5); HEMATOCRIT 30.7 % (37.0-47.0); HEMOGLOBIN 9.8 g/dl (12.0-16.0); LYMPHOCYTES # 1.2 10^3/ul (0.8-2.9); LYMPHOCYTES % 24.9 % (15.0-51.0); MEAN CORPUSCULAR HGB CONC 31.9 g/dl (32.0-37.0); MEAN CORPUSCULAR VOLUME 84.6 fl (82.0-101.0); MEAN PLATELET VOLUME 9.1 fl (7.4-10.4); MONOCYTE # 0.7 10^3/ul (0.3-0.9); NEUTROPHIL # 2.8 10^3/ul (1.6-7.5); NEUTROPHILS % 57.7 % (39.0-77.0); PLATELET COUNT 495 10^3/UL (140-415); RED BLOOD COUNT 3.63 10^6/ul (4.20-5.40); RED CELL DISTRIBUTION WIDTH 14.4 % (11.5-14.5); WHITE BLOOD COUNT 4.8 10^3/ul (4.8-10.8)
[2017-08-05 06:29] LABS: MONOCYTES % 15.4 % (0.0-11.0); POSITIVE DIFF @See below
[2017-08-05 07:10] LABS: CREATININE 0.39 mg/dl (0.44-1.00)
[2017-08-05 07:19] LABS: POTASSIUM 2.9 mmol/L (3.5-5.1)
[2017-08-05 07:55] VITALS: BP 109/72; RESP 16
[2017-08-05] MEDS: CEFEPIME 1GM/50 ML (PMX) 50 ML IVPB SCH ×2 (09:04→21:08)
[2017-08-05] MEDS: SERTRALINE 50 MG TAB PO SCH (09:04)
[2017-08-05] MEDS: FAMOTIDINE 20 MG INJ IV SCH ×2 (09:04→21:08)
[2017-08-05] MEDS: POTASSIUM CHLORIDE (SR) 20 MEQ TAB PO SCH ×2 (09:05→13:30)
[2017-08-05] MEDS: FERROUS SULFATE (EC) 325 MG TAB PO SCH (09:05)
[2017-08-05] MEDS: VANCOMYCIN 1.25 GM in SOD CHLORIDE 0.9% 250 ML IVPB SCH ×2 (10:13→21:09)
--- NOTE | 2017-08-05 14:00 | PN ---
DATE: 08/05/2017 INFECTIOUS DISEASE PROGRESS NOTE SUBJECTIVE: The patient is alert, feels good. Denies pain, discomfort. No fevers. VITAL SIGNS: T-max 99.8. WBC today 4.8, no shift, no bands. BUN 7, creatinine 0.39. MICROBIOLOGY: Blood culture on admission grew coagulase-negative staph species, one set. Urine cul ture pending. Influenza swab was negative. ANTIMICROBIALS: The patient is on: 1. Vancomycin. 2. Cefepime. PHYSICAL EXAMINATION: GENERAL: Well-nourished, well-developed, middle-aged woman who is alert, in no distress. HEENT: Head atraumatic, normocephalic. Sclerae anicteric. Buccal mucosa pink. NECK: Supple. CHEST: Rise symmetrical. Breath sounds clear. HEART: S1, S2. ABDOMEN: Soft. Bowel tones present. EXTREMITIES: Without cyanosis or edema. ASSESSMENT: 1. Resolving sepsis status post shock, present on admission. Etiology unclear. 2. Coagulase-negative staph bacteremia, likely contaminant. 3. Anemia and transaminitis with CT of the abdomen revealed no acute abnormality. PLAN: The patient remains stable, pending a 2D echo, pending repeat blood cultures. We are going t o repeat chest x-ray to make sure she does not have pneumonia, and if all negative, discontinue anti biotics. Dictated By: FOSTER SCHAFER LIP READING TEACHER for ANDREW KEENE/ALBERTA Conf#: [id number] DID#: [id number]
--- NOTE | 2017-08-05 14:47 | PN ---
Date/Time of Note Date/Time of Note DATE: 08/05/17 TIME: 14:44 Assessment/Plan VTE Prophylaxis VTE Prophylaxis Intervention: SCD's Lines/Catheters [facility] Type [facility] Peripheral IV Urinary Cath still in place: No Assessment/Plan Chief Complaint/Hosp Course Assessment and plan 1. Sepsis secondary to suspect UTI. Patient was noted with lactic acidosis as well as fever. Afebrile present. Status post vasopressors. Continue with antibiotic regimen. 2. Hyponatremia. Continue IV hydration. Improving at present. 3. Reported weight loss. Secondary to poor oral intake. Encourage oral intake. Follow-up on tumor markers. 4. Anemia. Iron deficiency noted. Will start on iron supplement 5. Transaminitis. CT scan of the abdomen and pelvis were negative for any acute findings. Hepatitis serology negative. Slowly improving at present. Will monitor for now. Continue IV hydration 6. Depression. Continue on Zoloft. Disposition plan: abx per ID. echocardiogram pending. d/c when cleared by consultants Discussed plan of care with Dr. Jacob Problems: Subjective 24 Hr Interval Summary Free Text/Dictation no s/s of distress Exam/Review of Systems Vital Signs Vitals Vital Signs Date Time Temp Pulse Resp B/P Pulse Ox O2 Delivery O2 Flow Rate FiO2 08/05/17 07:55 98.7 113 16 109/72 94 08/04/17 15:53 Room Air Intake and Output 08/04/17 08/04/17 08/05/17 15:00 23:00 07:00 Intake Total 928 ml 50 ml 1060 ml Output Total 0 ml Balance 928 ml 50 ml 1060 ml Exam Constitutional: alert, oriented Psych: other (No depression noted at this time) Head: normocephalic Neck: non-tender, supple Respiratory: clear to auscultation, normal air movement Cardiovascular: other (Regular rate Gastrointestinal: non-tender, soft Musculoskeletal: nl extremities to inspection Extremities: normal pulses 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8 Lymphocytes # 1.2 Monocytes # 0.7 Eosinophils # 0.1 Basophils # 0.0 Nucleated Red Blood Cells # 0.0 Sodium Level 133 L Potassium Level 2.9 *L Chloride Level 106 Carbon Dioxide Level 22 Anion Gap 8 Blood Urea Nitrogen 7 Creatinine 0.39 L Glucose Level 77 Calcium Level 7.0 L Medications Medications Current Medications Ondansetron HCl (Zofran Inj) 4 mg Q6H PRN IV NAUSEA AND/OR VOMITING; Start 08/03/17 at 16:00 Acetaminophen (Tylenol Tab) 650 mg Q6H PRN PO PAIN LEVEL 1-3 OR FEVER; Start 08/03/17 at 16:00 Acetaminophen/ Hydrocodone Bitart ([place] (5/325)) 1 tab Q6H PRN PO PAIN LEVEL 4 -6; Start 08/03/17 at 16:00 Famotidine 20 mg 20 mg Q12 IV Last administered on 08/05/17 09:04; Admin Dose 20 MG; Start 08/03/17 at 21:00 Cefepime HCl 50 ml @ 100 mls/hr Q12 IVPB Last administered on 08/05/17 09:04 ; Admin Dose 100 MLS/HR; Start 08/03/17 at 21:00 Sodium Chloride (NS) 1,000 ml @ 60 mls/hr [id number] IV Last administered on 08/04 08:48; Admin Dose 60 MLS/HR; Start 08/03/17 at 16:30 Sertraline HCl (Zoloft) 50 mg DAILY PO Last administered on 08/05/17 09:04; Admin Dose 50 MG; Start 08/04/17 at 09:00 Ferrous Sulfate 325 mg 325 mg DAILY PO Last administered on 08/05/17 09:05; Admin Dose 325 MG; Start 08/04/17 at 10:30 Vancomycin HCl/ Sodium Chloride (Vancocin/NS) 250 ml @ 83.333 mls/ hr Q12H IVPB Last administered on 08/05/17t 10:13; Admin Dose 83.333 MLS/HR; Start 08/05/17 at 09:00 Atorvastatin Calcium (Lipitor) 20 mg HS PO ; Start 08/05/17 at 21:00 FLOYD PABON Aug 05, 2017 14:47
[2017-08-05 15:09] VITALS: BP 144/71; RESP 16
[2017-08-05] MEDS ORDERED: AMIT10TA6 PO (15:44)
[2017-08-05] MEDS ORDERED: LEVO50TA74 PO (15:44)
[2017-08-05] MEDS ORDERED: ALLO100T64 PO (15:44)
[2017-08-05] MEDS ORDERED: NAPR-688 PO (15:44)
[2017-08-05 19:49] VITALS: BP 125/75; RESP 20
[2017-08-05] MEDS: ACETAMINOPHEN 325 MG TAB PO PRN (19:49)
[2017-08-05] MEDS: ATORVASTATIN 20 MG TAB PO SCH (21:08)
[2017-08-06 02:09] VITALS: BP 102/58; RESP 20
[2017-08-06 06:03] LABS: BASOPHILS % 0.4 % (0.0-2.0); EOSINOPHILS % 0.7 % (0.0-7.0); HEMATOCRIT 33.1 % (37.0-47.0); HEMOGLOBIN 10.5 g/dl (12.0-16.0); LYMPHOCYTES # 1.1 10^3/ul (0.8-2.9); LYMPHOCYTES % 24.1 % (15.0-51.0); MEAN CORPUSCULAR HEMOGLOBIN 26.9 pg (29.0-33.0); MEAN CORPUSCULAR HGB CONC 31.7 g/dl (32.0-37.0); MEAN CORPUSCULAR VOLUME 84.9 fl (82.0-101.0); MONOCYTE # 0.8 10^3/ul (0.3-0.9); NEUTROPHIL # 2.6 10^3/ul (1.6-7.5); NEUTROPHILS % 56.8 % (39.0-77.0); PLATELET COUNT 525 10^3/UL (140-415); RED CELL DISTRIBUTION WIDTH 14.6 % (11.5-14.5); WHITE BLOOD COUNT 4.6 10^3/ul (4.8-10.8)
[2017-08-06 06:16] LABS: MONOCYTES % 17.1 % (0.0-11.0); POSITIVE DIFF @See below
[2017-08-06 06:42] LABS: CREATININE 0.38 mg/dl (0.44-1.00); POTASSIUM 3.6 mmol/L (3.5-5.1)
[2017-08-06 07:31] VITALS: BP 127/74; RESP 32
[2017-08-06 08:00] VITALS: RESP 22
[2017-08-06] MEDS: SERTRALINE 50 MG TAB PO SCH (08:03)
[2017-08-06] MEDS: CEFEPIME 1GM/50 ML (PMX) 50 ML IVPB SCH (08:03)
[2017-08-06] MEDS: FERROUS SULFATE (EC) 325 MG TAB PO SCH (08:03)
[2017-08-06] MEDS: FAMOTIDINE 20 MG INJ IV SCH ×2 (08:03→20:53)
[2017-08-06] MEDS: VANCOMYCIN 1.25 GM in SOD CHLORIDE 0.9% 250 ML IVPB SCH (09:50)
[2017-08-06] MEDS: SOD CHLORIDE 0.9% 1,000 ML IV SCH ×2 (11:10→19:27)
--- NOTE | 2017-08-06 13:11 | CONS ---
Date/Time of Note Date/Time of Note DATE: 08/06/17 TIME: 13:10 Consult Date/Type/Reason Admit Date/Time Aug 03, 2017 at 15:38 Initial Consult Date Type of Consultation: id Objective Vital Signs Date Time Temp Pulse Resp B/P Pulse Ox O2 Delivery O2 Flow Rate FiO2 08/06/17 08:00 22 08/06/17 07:31 99.7 103 127/74 94 08/04/17 15:53 Room Air Intake and Output 08/05/17 08/05/17 08/06/17 15:00 23:00 07:00 Intake Total 300 ml 1500 ml 1060 ml Output Total 300 ml 1500 ml Balance 300 ml 1200 ml -440 ml Results/Medications Result Diagram: 08/06/17 0536 08/06/17 0536 Results 24 hrs Laboratory Tests Test 08/06/17 05:36 White Blood Count 4.6 L Red Blood Count 3.90 L Hemoglobin 10.5 L Hematocrit 33.1 L Mean Corpuscular Volume 84.9 Mean Corpuscular Hemoglobin 26.9 L Mean Corpuscular Hemoglobin Concent 31.7 L Red Cell Distribution Width 14.6 H Platelet Count 525 H Mean Platelet Volume 9.0 Neutrophils % 56.8 Lymphocytes % 24.1 Monocytes % 17.1 H Eosinophils % 0.7 Basophils % 0.4 Nucleated Red Blood Cells % 0.0 Neutrophils # 2.6 Lymphocytes # 1.1 Monocytes # 0.8 Eosinophils # 0.0 Basophils # 0.0 Nucleated Red Blood Cells # 0.0 Sodium Level 133 L Potassium Level 3.6 Chloride Level 104 Carbon Dioxide Level 23 Anion Gap 10 Blood Urea Nitrogen 5 L Creatinine 0.38 L Glucose Level 80 Calcium Level 7.0 L Magnesium Level 1.9 Medications Current Medications Ondansetron HCl (Zofran Inj) 4 mg Q6H PRN IV NAUSEA AND/OR VOMITING; Start 08/03/17 at 16:00 Acetaminophen (Tylenol Tab) 650 mg Q6H PRN PO PAIN LEVEL 1-3 OR FEVER Last administered on 08/05/17 19:49; Admin Dose 650 MG; Start 08/03/17 at 16:00 Acetaminophen/ Hydrocodone Bitart ([place] (5/325)) 1 tab Q6H PRN PO PAIN LEVEL 4 -6 Last administered on 08/06/17 08:03; Admin Dose 1 TAB; Start 08/03/17 at 16: 00 Famotidine 20 mg 20 mg Q12 IV Last administered on 08/06/17 08:03; Admin Dose 20 MG; Start 08/03/17 at 21:00 Cefepime HCl 50 ml @ 100 mls/hr Q12 IVPB Last administered on 08/06/17 08:03 ; Admin Dose 100 MLS/HR; Start 08/03/17 at 21:00 Sodium Chloride (NS) 1,000 ml @ 60 mls/hr [id number] IV Last administered on 08/05 17:43; Admin Dose 60 MLS/HR; Start 08/03/17 at 16:30 Sertraline HCl (Zoloft) 50 mg DAILY PO Last administered on 08/06/17 08:03; Admin Dose 50 MG; Start 08/04/17 at 09:00 Ferrous Sulfate 325 mg 325 mg DAILY PO Last administered on 08/06/17 08:03; Admin Dose 325 MG; Start 08/04/17 at 10:30 Vancomycin HCl/ Sodium Chloride (Vancocin/NS) 250 ml @ 83.333 mls/ hr Q12H IVPB Last administered on 08/06/17 09:50; Admin Dose 83.333 MLS/HR; Start 08/05/17 at 09:00 Atorvastatin Calcium (Lipitor) 20 mg HS PO Last administered on 08/05/17 21:08 ; Admin Dose 20 MG; Start 08/05/17 at 21:00 Influenza Virus Vaccine (Fluzone) 0.5 ml ONCE ONCE IM* ; Start 08/07/17 at 10:00 ; Stop 08/07/17 at 10:01 Miscellaneous Information (*Rx Drug Level Order Reminder*) VANCOMYCIN TROUGH LEVEL... ONCE ONCE XX ; Start 08/06/17 at 20:00; Stop 08/06/17 at 20:01 Assessment/Plan Chief Complaint/Hosp Course SUBJECTIVE: The patient is alert, feels cindi. No fevers. MICROBIOLOGY: Blood culture on admission grew coagulase-negative staph species , one set. Urine culture + Strep. Influenza swab was negative. ANTIMICROBIALS: 1. Vancomycin. 2. Cefepime. PHYSICAL EXAMINATION: GENERAL: Well-nourished, well-developed, middle-aged woman who is alert, in no distress. HEENT: Head atraumatic, normocephalic. Sclerae anicteric. Buccal mucosa pink. NECK: Supple. CHEST: Rise symmetrical. Breath sounds clear. HEART: S1, S2. ABDOMEN: Soft. Bowel tones present. EXTREMITIES: Without cyanosis or edema. ASSESSMENT: 1. Resolving sepsis status post shock, present on admission. Etiology unclear. 2. Coagulase-negative staph bacteremia, likely contaminant. 3. Anemia and transaminitis with CT of the abdomen revealed no acute abnormality. PLAN: The patient remains stable, will change abx to Amoxicillin [facility] staff Problems: FOSTER SCHAFER NP Aug 06, 2017 13:11
[2017-08-06 13:37] VITALS: BP 117/61; RESP 20
[2017-08-06] MEDS: AMOXICILLIN 500 MG CAP PO SCH ×2 (15:32→21:47)
--- NOTE | 2017-08-06 15:42 | PN ---
Date/Time of Note Date/Time of Note DATE: 08/06/17 TIME: 15:41 Assessment/Plan Lines/Catheters IV Catheter Type (from [facility]): Peripheral IV Urinary Cath still in place: No Assessment/Plan Chief Complaint/Hosp Course Assessment and plan 1. Sepsis secondary to suspect UTI. Patient was noted with lactic acidosis as well as fever. Afebrile present. Status post vasopressors. Continue with antibiotic regimen. 2. Hyponatremia. Continue IV hydration. Improving at present. 3. Reported weight loss. Secondary to poor oral intake. Encourage oral intake. Follow-up on tumor markers. 4. Anemia. Iron deficiency noted. Will start on iron supplement 5. Transaminitis. CT scan of the abdomen and pelvis were negative for any acute findings. Hepatitis serology negative. Slowly improving at present. Will monitor for now. Continue IV hydration 6. Depression. Continue on Zoloft. Disposition plan: abx per ID. still awaiting cho. d/c when cleared by consultants Discussed plan of care with Dr. Jacob Problems: Subjective 24 Hr Interval Summary Free Text/Dictation no s/s of distress Exam/Review of Systems Vital Signs Vitals Vital Signs Date Time Temp Pulse Resp B/P Pulse Ox O2 Delivery O2 Flow Rate FiO2 08/06/17 13:37 98.3 99 20 117/61 93 08/04/17 15:53 Room Air Intake and Output 08/05/17 08/05/17 08/06/17 15:00 23:00 07:00 Intake Total 300 ml 1500 ml 1060 ml Output Total 300 ml 1500 ml Balance 300 ml 1200 ml -440 ml Exam Constitutional: alert, oriented Psych: other (No depression noted at this time) Head: normocephalic Neck: non-tender, supple Respiratory: clear to auscultation, normal air movement Cardiovascular: other (Regular rate Gastrointestinal: non-tender, soft Musculoskeletal: nl extremities to inspection Extremities: normal pulses 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: 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 TALC RACKER II-XII 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, nl mental status, nl speech Skin: nl turgor Results Result Diagram: 08/06/1736 08/06/1736 Results 24 hrs Laboratory Tests Test 08/06/17 05:36 White Blood Count 4.6 L Red Blood Count 3.90 L Hemoglobin 10.5 L Hematocrit 33.1 L Mean Corpuscular Volume 84.9 Mean Corpuscular Hemoglobin 26.9 L Mean Corpuscular Hemoglobin Concent 31.7 L Red Cell Distribution Width 14.6 H Platelet Count 525 H Mean Platelet Volume 9.0 Neutrophils % 56.8 Lymphocytes % 24.1 Monocytes % 17.1 H Eosinophils % 0.7 Basophils % 0.4 Nucleated Red Blood Cells % 0.0 Neutrophils # 2.6 Lymphocytes # 1.1 Monocytes # 0.8 Eosinophils # 0.0 Basophils # 0.0 Nucleated Red Blood Cells # 0.0 Sodium Level 133 L Potassium Level 3.6 Chloride Level 104 Carbon Dioxide Level 23 Anion Gap 10 Blood Urea Nitrogen 5 L Creatinine 0.38 L Glucose Level 80 Calcium Level 7.0 L Magnesium Level 1.9 Medications Medications Current Medications Ondansetron HCl (Zofran Inj) 4 mg Q6H PRN IV NAUSEA AND/OR VOMITING; Start 08/03/17 at 16:00 Acetaminophen (Tylenol Tab) 650 mg Q6H PRN PO PAIN LEVEL 1-3 OR FEVER Last administered on 08/05/17 19:49; Admin Dose 650 MG; Start 08/03/17 at 16:00 Acetaminophen/ Hydrocodone Bitart ([place] (5/325)) 1 tab Q6H PRN PO PAIN LEVEL 4 -6 Last administered on 08/06/17 08:03; Admin Dose 1 TAB; Start 08/03/17 at 16: 00 Famotidine 20 mg 20 mg Q12 IV Last administered on 08/06/17 08:03; Admin Dose 20 MG; Start 08/03/17 at 21:00 Sodium Chloride (NS) 1,000 ml @ 60 mls/hr [id number] IV Last administered on 08/05 17:43; Admin Dose 60 MLS/HR; Start 08/03/17 at 16:30 Sertraline HCl (Zoloft) 50 mg DAILY PO Last administered on 08/06/17 08:03; Admin Dose 50 MG; Start 08/04/17 at 09:00 Ferrous Sulfate (Ferrous Sulfate (Ec)) 325 mg DAILY PO Last administered on 08:03; Admin Dose 325 MG; Start 08/04/17 at 10:30 Atorvastatin Calcium (Lipitor) 20 mg HS PO Last administered on 08/05/17 21:08 ; Admin Dose 20 MG; Start 08/05/17 at 21:00 Influenza Virus Vaccine (Fluzone) 0.5 ml ONCE ONCE IM* ; Start 08/07/17 at 10:00 ; Stop 08/07/17 at 10:01 Amoxicillin (Amoxicillin) 500 mg Q8 PO Last administered on 08/06/17t 15:32; Admin Dose 500 MG; Start 08/06/17 at 14:00 FLOYD PABON Aug 06, 2017 15:42
[2017-08-06] MEDS: ACETAMINOPHEN 325 MG TAB PO PRN (19:53)
[2017-08-06 20:18] VITALS: BP 119/67; RESP 20
[2017-08-06] MEDS: ATORVASTATIN 20 MG TAB PO SCH (20:51)
[2017-08-07 02:17] VITALS: BP 107/66; RESP 19
[2017-08-07] MEDS: SOD CHLORIDE 0.9% 1,000 ML IV SCH ×2 (03:43→12:37)
[2017-08-07 06:19] LABS: BASOPHILS % 0.3 % (0.0-2.0); EOSINOPHILS # 0.1 10^3/ul (0.0-0.5); EOSINOPHILS % 1.3 % (0.0-7.0); HEMATOCRIT 33.1 % (37.0-47.0); HEMOGLOBIN 10.5 g/dl (12.0-16.0); LYMPHOCYTES # 1.6 10^3/ul (0.8-2.9); LYMPHOCYTES % 26.5 % (15.0-51.0); MEAN CORPUSCULAR HEMOGLOBIN 26.9 pg (29.0-33.0); MEAN CORPUSCULAR HGB CONC 31.7 g/dl (32.0-37.0); MEAN CORPUSCULAR VOLUME 84.9 fl (82.0-101.0); MONOCYTE # 1.4 10^3/ul (0.3-0.9); NEUTROPHILS % 48.8 % (39.0-77.0); NUCLEATED RED BLOOD CELLS% 0.3 /100WBC (0.0-0.0); PLATELET COUNT 526 10^3/UL (140-415); RED CELL DISTRIBUTION WIDTH 14.8 % (11.5-14.5); WHITE BLOOD COUNT 6.2 10^3/ul (4.8-10.8)
[2017-08-07 06:28] LABS: MONOCYTES % 22.1 % (0.0-11.0); POSITIVE DIFF @See below
[2017-08-07] MEDS: AMOXICILLIN 500 MG CAP PO SCH ×3 (06:40→21:04)
[2017-08-07 07:07] LABS: CALCIUM 6.9 mg/dl (8.4-10.2); CREATININE 0.36 mg/dl (0.44-1.00); POTASSIUM 3.3 mmol/L (3.5-5.1)
[2017-08-07 07:52] VITALS: BP 108/64; RESP 18
[2017-08-07] MEDS: FAMOTIDINE 20 MG INJ IV SCH (09:25)
[2017-08-07] MEDS: FERROUS SULFATE (EC) 325 MG TAB PO SCH (09:25)
[2017-08-07] MEDS: SERTRALINE 50 MG TAB PO SCH (09:25)
[2017-08-07] MEDS ORDERED: INFLUENZA VIRUS VACCINE 0.5 ML SYG IM* ONE (10:00)
[2017-08-07] MEDS ORDERED: POTASSIUM CHLORIDE (SR) 20 MEQ TAB PO STA (11:14)
[2017-08-07] MEDS ORDERED: CALCIUM CARBONATE 1.25 GM TAB PO ONE (11:30)
--- NOTE | 2017-08-07 14:08 | PN ---
DATE: 08/07/2017 SUBJECTIVE: Patient is awake, looks comfortable, denies pain. She spiked fever of 100.2 yesterday, currently afebrile. MICROBIOLOGY: Blood culture on admission, one set grew coagulase-negative staph species. Repeat bl ood cultures negative. Urine culture grew gamma hemolytic strep species. Influenza swab was negati ve. DIAGNOSTICS: CT of the chest and thorax revealed mild atelectasis at the lung bases. ANTIMICROBIALS: The patient is on oral amoxicillin. PHYSICAL EXAMINATION: GENERAL: This is a fragile, well-developed, middle-aged woman who is awake, and in no distres s. HEENT: Head atraumatic, normocephalic. Sclerae anicteric. Buccal mucosa dry. NECK: Supple. CHEST: Rise symmetrical. Breath sounds diminished to bases. HEART: S1, S2. ABDOMEN: Soft. Bowel tones present. EXTREMITIES: Without cyanosis. ASSESSMENT: 1. Status post septic shock on admission. 2. Urinary tract infection. 3. Ongoing fevers. 4. Status post coagulase negative staph bacteremia consistent with contaminant. 5. Anemia. 6. Transaminitis, CT of the abdomen revealed no acute abnormality. PLAN: The patient remains clinically unchanged, hemodynamically stable. She has being spiking feve rs with a 102.2 T-max, etiology of which is unclear. We are going to order chest x-ray. Await for 2D echo report. Repeat cultures if she still spikes fever. We will continue observing her while in the hospital. Dictated By: FOSTER SCHAFER CLINICAL INTERVIEWER for ANDREW KEENE/ALBERTA Conf#: [id number] DID#: [id number]
[2017-08-07 14:21] VITALS: BP 111/62; RESP 18
--- NOTE | 2017-08-07 14:47 | PN ---
Date/Time of Note Date/Time of Note DATE: 08/07/17 TIME: 14:43 Assessment/Plan VTE Prophylaxis VTE Prophylaxis Intervention: SCD's Lines/Catheters IV Catheter Type (from [facility]): Peripheral IV Urinary Cath still in place: No Assessment/Plan Chief Complaint/Hosp Course Assessment and plan 1. Sepsis secondary to suspect UTI. Patient was noted with lactic acidosis as well as fever. Afebrile present. Status post vasopressors. Continue with antibiotic regimen. 2. Hyponatremia. Continue IV hydration. Improving at present. 3. Reported weight loss. Secondary to poor oral intake. Encourage oral intake. Follow-up on tumor markers. 4. Anemia. Iron deficiency noted. Will start on iron supplement 5. Transaminitis. CT scan of the abdomen and pelvis were negative for any acute findings. Hepatitis serology negative. Slowly improving at present. Will monitor for now. Continue IV hydration 6. Depression. Continue on Zoloft. Disposition plan: Continue antibiotics. Was noted with fever last night. ID consult is following. Follow-up on echocardiogram. Discharge and cleared by consultants. Discussed plan of care with Dr. Jacob Problems: Subjective 24 Hr Interval Summary Free Text/Dictation no s/s of distress Exam/Review of Systems Vital Signs Vitals Vital Signs Date Time Temp Pulse Resp B/P Pulse Ox O2 Delivery O2 Flow Rate FiO2 08/07/17 14:21 98.7 90 18 111/62 96 08/04/17 15:53 Room Air Intake and Output 08/06/17 08/06/17 08/07/17 14:59 22:59 06:59 Intake Total 300 ml 970 ml 850 ml Output Total 400 ml Balance 300 ml 970 ml 450 ml Exam Constitutional: alert, oriented, only reports some headache Psych: other (No depression noted at this time) Head: normocephalic Neck: non-tender, supple Respiratory: clear to auscultation, normal air movement Cardiovascular: other (Regular rate Gastrointestinal: non-tender, soft Musculoskeletal: nl extremities to inspection Extremities: normal pulses 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: TRACTOR CRANE OPERATOR II-XII intact, nl mental status, nl speech Skin: nl turgor Results Result Diagram: 08/07/17 0538 08/07/17 0538 Results 24 hrs Laboratory Tests Test 08/07/17 05:38 White Blood Count 6.2 # Red Blood Count 3.90 L Hemoglobin 10.5 L Hematocrit 33.1 L Mean Corpuscular Volume 84.9 Mean Corpuscular Hemoglobin 26.9 L Mean Corpuscular Hemoglobin Concent 31.7 L Red Cell Distribution Width 14.8 H Platelet Count 526 H Mean Platelet Volume 9.0 Neutrophils % 48.8 Lymphocytes % 26.5 Monocytes % 22.1 H Eosinophils % 1.3 Basophils % 0.3 Nucleated Red Blood Cells % 0.3 H Neutrophils # 3.0 Lymphocytes # 1.6 Monocytes # 1.4 H Eosinophils # 0.1 Basophils # 0.0 Nucleated Red Blood Cells # 0.0 Sodium Level 133 L Potassium Level 3.3 L Chloride Level 102 Carbon Dioxide Level 26 Anion Gap 8 Blood Urea Nitrogen 5 L Creatinine 0.36 L Glucose Level 82 Calcium Level 6.9 L Medications Medications Current Medications Ondansetron HCl (Zofran Inj) 4 mg Q6H PRN IV NAUSEA AND/OR VOMITING; Start 08/03/17 at 16:00 Acetaminophen (Tylenol Tab) 650 mg Q6H PRN PO PAIN LEVEL 1-3 OR FEVER Last administered on 08/06/17 19:53; Admin Dose 650 MG; Start 08/03/17 at 16:00 Acetaminophen/ Hydrocodone Bitart ([place] (5/325)) 1 tab Q6H PRN PO PAIN LEVEL 4 -6 Last administered on 08/06/17 08:03; Admin Dose 1 TAB; Start 08/03/17 at 16: 00 Famotidine 20 mg 20 mg Q12 IV Last administered on 08/07/17 09:25; Admin Dose 20 MG; Start 08/03/17 at 21:00 Sodium Chloride (NS) 1,000 ml @ 60 mls/hr [id number] IV Last administered on 08/07 12:37; Admin Dose 60 MLS/HR; Start 08/03/17 at 16:30 Sertraline HCl (Zoloft) 50 mg DAILY PO Last administered on 08/07/17 09:25; Admin Dose 50 MG; Start 08/04/17 at 09:00 Ferrous Sulfate (Ferrous Sulfate (Ec)) 325 mg DAILY PO Last administered on 09:25; Admin Dose 325 MG; Start 08/04/17 at 10:30 Atorvastatin Calcium (Lipitor) 20 mg HS PO Last administered on 08/06/17 20:51 ; Admin Dose 20 MG; Start 08/05/17 at 21:00 Amoxicillin (Amoxicillin) 500 mg Q8 PO Last administered on 08/07/17t 06:40; Admin Dose 500 MG; Start 08/06/17 at 14:00 FLOYD PABON Aug 07, 2017 14:47
--- NOTE | 2017-08-07 15:32 | RADRPT ---
PROCEDURE: XR Chest. CLINICAL INDICATION: Shortness of breath. TECHNIQUE: Single frontal view. COMPARISON: 08/03/2017. FINDINGS: There is interstitial disease bilaterally in the mid and lower lung zones, new when compared with th e prior study. The lungs are otherwise clear. The heart size is normal. There is calcification in the aorta consistent with atherosclerosis. There is no pleural effusion. There is no pneumothorax. IMPRESSION: 1. New interstitial disease bilaterally in the mid and lower lung zones consistent with an inflamma tory process or pulmonary edema. Clinical correlation is advised. 2. Atherosclerosis. 3. Otherwise unremarkable chest radiograph. RPTAT: QQ .Scott Nair MD, MD Date Time Electronically viewed and signed by .Scott Nair MD, MD on 08/07/2017 15:32 .R/
[2017-08-07 19:19] VITALS: BP 112/60; PULSE 85; RESP 16
[2017-08-07] MEDS: FAMOTIDINE 20 MG TAB PO SCH (21:04)
[2017-08-07] MEDS: ATORVASTATIN 20 MG TAB PO SCH (21:04)
--- NOTE | 2017-08-07 21:33 | RADRPT ---
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 Physician: MAY WADE Quality: Good Procedures: Transthoracic echocardiogram with complete 2D, M-Mode, and doppler examination. Indications: Evaluate Left Ventricular function. 2D/M Mode Doppler Measurement Value Normal Ranges Measurement Value Normal Ranges LVIDd 2D 4.3 3.5 - 5.6 cm AV Peak Anoop 1.6 m/sec LVIDs 2D 2.3 2.1 - 4.1 cm AV Peak PG 10.5 mmHg LVPWd 2D 1.0 0.6 - 1.1 cm LVOT Peak Anoop 1.4 m/sec IVSd 2D 0.9 0.6 - 1.1 cm LVOT Peak PG 7.7 mmHg AoR Diam 2D 2.2 2.0 - 3.7 cm MV E Peak Anoop 0.9 m/sec EDV 2D 85.4 cm3 MV A Peak Anoop 0.9 m/sec ESV 2D 12.8 cm3 MV E/A 1.0 LA Dimen 2D 3.0 2.3 - 4.0 cm MV Decel Time 313 msec MV Decel Dawes 3 MV E/A 1.0 TR Peak Anoop 3.6 m/sec TR Peak PG 53.1 mmHg RVSP 68.0 mmHg Findings Left Ventricle: Normal left ventricular systolic function. Normal left ventricular cavity size. Normal left ventricular wall thickness. Ejection fraction is visually estimated at 6065 %. Tissue Doppler/Mitral Doppler indices are consistent with impaired relaxation (Stage I diastolic dysfunction). Right Ventricle: Normal right ventricular size. Normal right ventricular systolic function. Left Atrium: The left atrium is normal in size. Right Atrium: The right atrium is normal in size. Mitral Valve: Mitral valve leaflets appear mildly thickened. Mild mitral annular calcification. Trace mitral regurgitation. Aortic Valve: Normal appearance of the aortic valve. No significant aortic stenosis or insufficiency. Tricuspid Valve: Normal appearance of the tricuspid valve. Estimated peak PA systolic pressure 68 mmHg. There is moderate tricuspid regurgitation. Pulmonic Valve: Normal pulmonic valve appearance. There is trace pulmonic regurgitation. Pericardium: Normal pericardium with no significant pericardial effusion. Aorta: Normal aortic root. IVC: Dilated IVC without respiratory collapse consistent with elevated right atrial pressure. Conclusions 1.Normal left ventricular systolic function. Normal left ventricular cavity size. Normal left ventricular wall thickness. Ejection fraction is visually estimated at 60-65 %. Tissue Doppler/Mitral Doppler indices are consistent with impaired relaxation (Stage I diastolic dysfunction). 2.Mitral valve leaflets appear mildly thickened. Mild mitral annular calcification. Trace mitral regurgitation. 3.Normal appearance of the tricuspid valve. Estimated peak PA systolic pressure 68 mmHg. There is moderate tricuspid regurgitation. 4.Normal pulmonic valve appearance. There is trace pulmonic regurgitation. 5.Dilated IVC without respiratory collapse consistent with elevated right atrial pressure. Electronically Signed By: Joe Gilbert 07-Aug-2017 21:32:44 -0800 Patient Name: LUIS COOPER Study Date: 04-Aug-2017 [id number]
[2017-08-07 23:34] VITALS: BP 130/73; RESP 20
[2017-08-08] MEDS: SOD CHLORIDE 0.9% 1,000 ML IV SCH (03:55)
[2017-08-08] MEDS: AMOXICILLIN 500 MG CAP PO SCH ×3 (05:54→21:21)
[2017-08-08 08:00] VITALS: BP 122/73; RESP 20
[2017-08-08 08:50] LABS: BASOPHILS % 0.4 % (0.0-2.0); EOSINOPHILS % 0.8 % (0.0-7.0); HEMATOCRIT 32.7 % (37.0-47.0); HEMOGLOBIN 10.1 g/dl (12.0-16.0); LYMPHOCYTES # 1.6 10^3/ul (0.8-2.9); LYMPHOCYTES % 32.1 % (15.0-51.0); MEAN CORPUSCULAR HEMOGLOBIN 26.3 pg (29.0-33.0); MEAN CORPUSCULAR HGB CONC 30.9 g/dl (32.0-37.0); MEAN CORPUSCULAR VOLUME 85.2 fl (82.0-101.0); MEAN PLATELET VOLUME 9.1 fl (7.4-10.4); NEUTROPHIL # 2.3 10^3/ul (1.6-7.5); NEUTROPHILS % 45.5 % (39.0-77.0); PLATELET COUNT 524 10^3/UL (140-415); RED BLOOD COUNT 3.84 10^6/ul (4.20-5.40); RED CELL DISTRIBUTION WIDTH 14.8 % (11.5-14.5)
[2017-08-08 09:11] LABS: CREATININE 0.36 mg/dl (0.44-1.00); POTASSIUM 3.5 mmol/L (3.5-5.1)
[2017-08-08 09:19] LABS: MONOCYTES % 19.6 % (0.0-11.0); POSITIVE DIFF @See below
[2017-08-08] MEDS: SERTRALINE 50 MG TAB PO SCH (09:34)
[2017-08-08] MEDS: FERROUS SULFATE (EC) 325 MG TAB PO SCH (09:34)
[2017-08-08] MEDS: FAMOTIDINE 20 MG TAB PO SCH (09:34)
--- NOTE | 2017-08-08 10:11 | PN ---
Date/Time of Note Date/Time of Note DATE: 08/08/17 TIME: 10:09 Assessment/Plan VTE Prophylaxis VTE Prophylaxis Intervention: LMWH Lines/Catheters IV [facility] (from [facility] Peripheral IV Urinary Cath still in place: No Assessment/Plan Chief Complaint/Hosp Course Subjective: No pain fever dyspnea. Appetite okay. Mild edema. Objective: Vital signs stable Physical exam No pallor adenopathy Regular no murmur rub gallop Clear Bs+ nontender nondistended no RRG Mild anemia Assessment and plan 1. Sirs/sepsis. Unknown etiology. Fever defervesced since. Consider discharge. 2. Anemia 3. Acute cystitis? 4. Depression? 5. Hypothyroidism symptomatic? 6. Third spacing. Watch fluids 7. Pulmonary hypertension? Problems: Exam/Review of Systems Vital Signs Vitals Vital Signs Date Time Temp Pulse Resp B/P Pulse Ox O2 Delivery O2 Flow Rate FiO2 08/07/17 23:34 99.3 97 20 130/73 99 08/07/17 19:19 Room Air Intake and Output 08/07/17 08/07/17 08/08/17 15:00 23:00 07:00 Intake Total 400 ml 1120 ml 1280 ml Output Total 400 ml 400 ml Balance 400 ml 720 ml 880 ml Results Result Diagram: 08/08/17 0816 08/08/17 0816 Results 24 hrs Laboratory Tests Test 08/08/17 08:16 White Blood Count 5.0 Red Blood Count 3.84 L Hemoglobin 10.1 L Hematocrit 32.7 L Mean Corpuscular Volume 85.2 Mean Corpuscular Hemoglobin 26.3 L Mean Corpuscular Hemoglobin Concent 30.9 L Red Cell Distribution Width 14.8 H Platelet Count 524 H Mean Platelet Volume 9.1 Neutrophils % 45.5 Lymphocytes % 32.1 Monocytes % 19.6 H Eosinophils % 0.8 Basophils % 0.4 Nucleated Red Blood Cells % 0.0 Neutrophils # 2.3 Lymphocytes # 1.6 Monocytes # 1.0 H Eosinophils # 0.0 Basophils # 0.0 Nucleated Red Blood Cells # 0.0 Sodium Level 132 L Potassium Level 3.5 Chloride Level 101 Carbon Dioxide Level 24 Anion Gap 11 Blood Urea Nitrogen 4 L Creatinine 0.36 L Glucose Level 80 Calcium Level 7.0 L Medications Medications Current Medications Ondansetron HCl (Zofran Inj) 4 mg Q6H PRN IV NAUSEA AND/OR VOMITING; Start 08/03/17 at 16:00 Acetaminophen (Tylenol Tab) 650 mg Q6H PRN PO PAIN LEVEL 1-3 OR FEVER Last administered on 08/06/17 19:53; Admin Dose 650 MG; Start 08/03/17 at 16:00 Acetaminophen/ Hydrocodone Bitart 1 tab 1 tab Q6H PRN PO PAIN LEVEL 4-6 Last administered on 08/06/17 08:03; Admin Dose 1 TAB; Start 08/03/17 at 16:00 Sodium Chloride (NS) 1,000 ml @ 60 mls/hr [id number] IV Last administered on 03:55; Admin Dose 60 MLS/HR; Start 08/03/17 at 16:30 Sertraline HCl (Zoloft) 50 mg DAILY PO Last administered on 08/08/17 09:34; Admin Dose 50 MG; Start 08/04/17 at 09:00 Ferrous Sulfate (Ferrous Sulfate (Ec)) 325 mg DAILY PO Last administered on 09:34; Admin Dose 325 MG; Start 08/04/17 at 10:30 Atorvastatin Calcium (Lipitor) 20 mg HS PO Last administered on 08/07/17 21:04 ; Admin Dose 20 MG; Start 08/05/17 at 21:00 Amoxicillin (Amoxicillin) 500 mg Q8 PO Last administered on 08/08/17 05:54; Admin Dose 500 MG; Start 08/06/17 at 14:00 Famotidine (Pepcid) 20 mg BID PO Last administered on 08/08/17 09:34; Admin Dose 20 MG; Start 08/07/17 at 21:00 KATERIN EM MD Aug 08, 2017 10:11
[2017-08-08] MEDS ORDERED: ENOXAPARIN 40 MG/0.4 ML SYG SC ONE (10:30)
--- NOTE | 2017-08-08 12:59 | CONS ---
Date/Time of Note Date/Time of Note DATE: 08/08/17 TIME: 12:57 Assessment/Plan Assessment/Plan Chief Complaint/Hosp Course SUBJECTIVE: The patient is alert, feels good. No fevers over night. MICROBIOLOGY: Blood culture on admission grew coagulase-negative staph species , one set. Urine culture + Strep. Influenza swab was negative. ANTIMICROBIALS: Amoxicillin PHYSICAL EXAMINATION: GENERAL: Well-nourished, well-developed, middle-aged woman who is alert, in no distress. HEENT: Head atraumatic, normocephalic. Sclerae anicteric. Buccal mucosa pink. NECK: Supple. CHEST: Rise symmetrical. Breath sounds clear. HEART: S1, S2. ABDOMEN: Soft. Bowel tones present. EXTREMITIES: Without cyanosis or edema. ASSESSMENT: 1. Resolving sepsis status post shock, present on admission. 2. UTI 2. Coagulase-negative staph bacteremia, cw contaminant. 3. Anemia and transaminitis with CT of the abdomen revealed no acute abnormality. PLAN: The patient remains stable, no fevers over night, repeat bld cx negative , no vegetations per 2D ECHO, continue abx for 5 more days [facility] staff/pt/family Problems: Consultation Date/Type/Reason Admit Date/Time Aug 03, 2017 at 15:38 Type of Consultation: id Exam/Review of Systems Vital Signs Vitals Vital Signs Date Time Temp Pulse Resp B/P Pulse Ox O2 Delivery O2 Flow Rate FiO2 08/07/17 23:34 99.3 97 20 130/73 99 08/07/17 19:19 Room Air Intake and Output 08/07/17 08/07/17 08/08/17 14:59 22:59 06:59 Intake Total 400 ml 1120 ml 1280 ml Output Total 400 ml 400 ml Balance 400 ml 720 ml 880 ml Results Result Diagram: 08/08/17 0816 08/08/17 0816 Results 24 hrs Laboratory Tests Test 08/08/17 08:16 White Blood Count 5.0 Red Blood Count 3.84 L Hemoglobin 10.1 L Hematocrit 32.7 L Mean Corpuscular Volume 85.2 Mean Corpuscular Hemoglobin 26.3 L Mean Corpuscular Hemoglobin Concent 30.9 L Red Cell Distribution Width 14.8 H Platelet Count 524 H Mean Platelet Volume 9.1 Neutrophils % 45.5 Lymphocytes % 32.1 Monocytes % 19.6 H Eosinophils % 0.8 Basophils % 0.4 Nucleated Red Blood Cells % 0.0 Neutrophils # 2.3 Lymphocytes # 1.6 Monocytes # 1.0 H Eosinophils # 0.0 Basophils # 0.0 Nucleated Red Blood Cells # 0.0 Sodium Level 132 L Potassium Level 3.5 Chloride Level 101 Carbon Dioxide Level 24 Anion Gap 11 Blood Urea Nitrogen 4 L Creatinine 0.36 L Glucose Level 80 Calcium Level 7.0 L Medications Medications Current Medications Ondansetron HCl (Zofran Inj) 4 mg Q6H PRN IV NAUSEA AND/OR VOMITING; Start 08/03/17 at 16:00 Acetaminophen (Tylenol Tab) 650 mg Q6H PRN PO PAIN LEVEL 1-3 OR FEVER Last administered on 08/06/17 19:53; Admin Dose 650 MG; Start 08/03/17 at 16:00 Acetaminophen/ Hydrocodone Bitart ([place] (5/325)) 1 tab Q6H PRN PO PAIN LEVEL 4 -6 Last administered on 08/06/17 08:03; Admin Dose 1 TAB; Start 08/03/17 at 16: 00 Sertraline HCl (Zoloft) 50 mg DAILY PO Last administered on 08/08/17 09:34; Admin Dose 50 MG; Start 08/04/17 at 09:00 Ferrous Sulfate (Ferrous Sulfate (Ec)) 325 mg DAILY PO Last administered on 09:34; Admin Dose 325 MG; Start 08/04/17 at 10:30 Atorvastatin Calcium (Lipitor) 20 mg HS PO Last administered on 08/07/17 21:04 ; Admin Dose 20 MG; Start 08/05/17 at 21:00 Amoxicillin (Amoxicillin) 500 mg Q8 PO Last administered on 08/08/17 05:54; Admin Dose 500 MG; Start 08/06/17 at 14:00 Famotidine (Pepcid) 20 mg DAILY PO ; Start 08/09/17 at 09:00 Levothyroxine Sodium (Synthroid) 25 mcg DAILY@06 PO ; Start 08/09/17 at 06:00 FOSTER SCHAFER NP Aug 08, 2017 12:59
[2017-08-08 14:00] VITALS: BP 121/69; RESP 18
[2017-08-08 19:41] VITALS: BP 119/65; RESP 20
[2017-08-08] MEDS: ATORVASTATIN 20 MG TAB PO SCH (21:21)
[2017-08-09 02:11] VITALS: BP 124/70; RESP 20
[2017-08-09] MEDS: LEVOTHYROXINE 25 MCG TAB PO SCH (05:36)
[2017-08-09] MEDS: AMOXICILLIN 500 MG CAP PO SCH ×3 (05:36→21:08)
[2017-08-09 05:54] LABS: BASOPHILS % 0.4 % (0.0-2.0); EOSINOPHILS # 0.1 10^3/ul (0.0-0.5); EOSINOPHILS % 1.3 % (0.0-7.0); HEMATOCRIT 31.5 % (37.0-47.0); HEMOGLOBIN 10.1 g/dl (12.0-16.0); LYMPHOCYTES # 1.8 10^3/ul (0.8-2.9); LYMPHOCYTES % 33.5 % (15.0-51.0); MEAN CORPUSCULAR HEMOGLOBIN 27.2 pg (29.0-33.0); MEAN CORPUSCULAR HGB CONC 32.1 g/dl (32.0-37.0); MEAN CORPUSCULAR VOLUME 84.9 fl (82.0-101.0); MEAN PLATELET VOLUME 9.1 fl (7.4-10.4); MONOCYTE # 1.1 10^3/ul (0.3-0.9); NEUTROPHIL # 2.2 10^3/ul (1.6-7.5); NEUTROPHILS % 41.8 % (39.0-77.0); PLATELET COUNT 585 10^3/UL (140-415); RED BLOOD COUNT 3.71 10^6/ul (4.20-5.40); RED CELL DISTRIBUTION WIDTH 14.6 % (11.5-14.5); WHITE BLOOD COUNT 5.4 10^3/ul (4.8-10.8)
[2017-08-09 06:30] LABS: CALCIUM 7.2 mg/dl (8.4-10.2); CREATININE 0.37 mg/dl (0.44-1.00); POTASSIUM 3.2 mmol/L (3.5-5.1)
[2017-08-09 06:37] LABS: MONOCYTES % 20.4 % (0.0-11.0)
[2017-08-09 06:38] LABS: POSITIVE DIFF @See below
[2017-08-09 07:22] VITALS: BP 120/71; RESP 16
[2017-08-09] MEDS: FERROUS SULFATE (EC) 325 MG TAB PO SCH (08:47)
[2017-08-09] MEDS: FAMOTIDINE 20 MG TAB PO SCH (08:47)
[2017-08-09] MEDS: SERTRALINE 50 MG TAB PO SCH (08:47)
[2017-08-09 13:54] VITALS: BP 124/71; RESP 20
--- NOTE | 2017-08-09 15:08 | PN ---
Date/Time of Note Date/Time of Note DATE: 08/09/17 TIME: 15:04 Assessment/Plan VTE Prophylaxis VTE Prophylaxis Intervention: SCD's Lines/Catheters IV [facility] Peripheral IV Urinary Cath still in place: No Assessment/Plan Chief Complaint/Hosp Course 1. S/P severe sepsis with underlying septic shock secondary to urinary tract infection. On antimicrobials as per infectious diseases. The patient had gram- positive bacteremia which was consistent with sample contamination. 2. Hyponatremia. Etiology unclear. Etiology could be excess free water, excess sodium loss, or others. The patient's hyponatremia will be corrected slowly. 3. Unintentional weight loss. Most probably secondary to poor oral intake. Tumor markers negative except for CA 125. Needs outpatient workup. 4. Anemia. Normocytic and hypochromic. Evidence of iron deficiency. Continue iron supplements. 5. Transaminitis without hyperbilirubinemia. Etiology unclear. Improving. Imaging negative for any significant findings. 6. Depression. No suicidal ideation. Continue the patient on SSRIs. 7. Hypothyroidism. On Synthroid. 8. Dyslipidemia. Hypertriglyceridemia with low HDL. The patient was started on statins. Monitor LFTs closely. 9. Protein calorie malnutrition. Moderate to severe. The patient will be provided with dietary supplements. 10. Debility. Status post physical therapy evaluation. Encourage out of bed. 11. Fluids, electrolytes, and nutrition. Regular diet. 12. DVT prophylaxis. Bilateral SCDs. 13. Plan. Continue current management. Await clearance from consultants before discharge. Case discussed with Dr. Jacob. Problems: Subjective 24 Hr Interval Summary Free Text/Dictation The patient remains afebrile. Denies any pain. Exam/Review of Systems Vital Signs Vitals Vital Signs Date Time Temp Pulse Resp B/P Pulse Ox O2 Delivery O2 Flow Rate FiO2 08/09/17 13:54 98.9 87 20 124/71 97 08/08/17 08:00 Room Air Intake and Output 08/08/17 08/08/17 08/09/17 15:00 23:00 07:00 Intake Total 250 ml 920 ml Output Total 1150 ml Balance 250 ml -230 ml Exam General: Thin, malnourished, pale looking 56 year-old female lying in bed in no apparent distress. HEENT: Normocephalic, atraumatic. Eyes: Anicteric sclerae, conjunctivae clear. ENT: Nasal septum midline, oral mucosa is dry. Neck supple, JVD noticed. Respiratory: Bilaterally diminished breath sounds. No use of accessory muscles of respiration. No adventitious breath sounds. Cardiovascular: S1, S2 heard. Regular rate and rhythm. Abdomen: Nontender, distended. Bowel sounds positive in all 4 quadrants. Genitourinary: Deferred. Extremities: No cyanosis, no clubbing, no edema. Peripheral pulses palpable. Neurologic: Cranial nerves II through XII grossly intact. The patient is awake, alert, and oriented. Results Result Diagram: 08/09/17 0507 08/09/17 0507 Results 24 hrs Laboratory Tests Test 08/09/17 05:07 White Blood Count 5.4 Red Blood Count 3.71 L Hemoglobin 10.1 L Hematocrit 31.5 L Mean Corpuscular Volume 84.9 Mean Corpuscular Hemoglobin 27.2 L Mean Corpuscular Hemoglobin Concent 32.1 Red Cell Distribution Width 14.6 H Platelet Count 585 H Mean Platelet Volume 9.1 Neutrophils % 41.8 Lymphocytes % 33.5 Monocytes % 20.4 H Eosinophils % 1.3 Basophils % 0.4 Nucleated Red Blood Cells % 0.0 Neutrophils # 2.2 Lymphocytes # 1.8 Monocytes # 1.1 H Eosinophils # 0.1 Basophils # 0.0 Nucleated Red Blood Cells # 0.0 Sodium Level 133 L Potassium Level 3.2 L Chloride Level 100 Carbon Dioxide Level 27 Anion Gap 9 Blood Urea Nitrogen 5 L Creatinine 0.37 L Glucose Level 83 Calcium Level 7.2 L Medications Medications Current Medications Ondansetron HCl (Zofran Inj) 4 mg Q6H PRN IV NAUSEA AND/OR VOMITING; Start 08/03/17 at 16:00 Acetaminophen (Tylenol Tab) 650 mg Q6H PRN PO PAIN LEVEL 1-3 OR FEVER Last administered on 08/06/17 19:53; Admin Dose 650 MG; Start 08/03/17 at 16:00 Acetaminophen/ Hydrocodone Bitart ([place] (5/325)) 1 tab Q6H PRN PO PAIN LEVEL 4 -6 Last administered on 08/06/17 08:03; Admin Dose 1 TAB; Start 08/03/17 at 16: 00 Sertraline HCl (Zoloft) 50 mg DAILY PO Last administered on 08/09/17 08:47; Admin Dose 50 MG; Start 08/04/17 at 09:00 Ferrous Sulfate (Ferrous Sulfate (Ec)) 325 mg DAILY PO Last administered on 08:47; Admin Dose 325 MG; Start 08/04/17 at 10:30 Atorvastatin Calcium (Lipitor) 20 mg HS PO Last administered on 08/08/17 21: 21; Admin Dose 20 MG; Start 08/05/17 at 21:00 Amoxicillin (Amoxicillin) 500 mg Q8 PO Last administered on 08/09/17 13:55; Admin Dose 500 MG; Start 08/06/17 at 14:00 Famotidine (Pepcid) 20 mg DAILY PO Last administered on 08/09/17 08:47; Admin Dose 20 MG; Start 08/09/17 at 09:00 Levothyroxine Sodium (Synthroid) 25 mcg DAILY@06 PO Last administered on 05:36; Admin Dose 25 MCG; Start 08/09/17 at 06:00 MAY WADE NP Aug 09, 2017 15:08
[2017-08-09] MEDS ORDERED: POTASSIUM CHLORIDE (SR) 10 MEQ TAB PO ONE (15:30)
--- NOTE | 2017-08-09 17:21 | CONS ---
Date/Time of Note Date/Time of Note DATE: 08/09/17 TIME: 17:20 Assessment/Plan Assessment/Plan Chief Complaint/Hosp Course SUBJECTIVE: The patient is alert, feels good. No fevers, looks comfortable. MICROBIOLOGY: Blood culture on admission grew coagulase-negative staph species , one set. Urine culture + Strep. Influenza swab was negative. ANTIMICROBIALS: Amoxicillin PHYSICAL EXAMINATION: GENERAL: Well-nourished, well-developed, middle-aged woman who is alert, in no distress. HEENT: Head atraumatic, normocephalic. Sclerae anicteric. Buccal mucosa pink. NECK: Supple. CHEST: Rise symmetrical. Breath sounds clear. HEART: S1, S2. ABDOMEN: Soft. Bowel tones present. EXTREMITIES: Without cyanosis or edema. ASSESSMENT: 1. Resolving sepsis status post shock. 2. UTI 2. Coagulase-negative staph bacteremia, cw contaminant. 3. Anemia and transaminitis with CT of the abdomen revealed no acute abnormality. PLAN: The patient remains stable, repeat bld cx negative, no vegetations per 2D ECHO, continue abx for 4 more days [facility] staff/pt Problems: Consultation Date/Type/Reason Admit Date/Time Aug 03, 2017 at 15:38 Type of Consultation: id Exam/Review of Systems Vital Signs Vitals Vital Signs Date Time Temp Pulse Resp B/P Pulse Ox O2 Delivery O2 Flow Rate FiO2 08/09/17 13:54 98.9 87 20 124/71 97 08/08/17 08:00 Room Air Intake and Output 08/08/17 08/08/17 08/09/17 14:59 22:59 06:59 Intake Total 250 ml 920 ml Output Total 1150 ml Balance 250 ml -230 ml Results Result Diagram: 08/09/17 0507 08/09/17 0507 Results 24 hrs Laboratory Tests Test 08/09/17 05:07 White Blood Count 5.4 Red Blood Count 3.71 L Hemoglobin 10.1 L Hematocrit 31.5 L Mean Corpuscular Volume 84.9 Mean Corpuscular Hemoglobin 27.2 L Mean Corpuscular Hemoglobin Concent 32.1 Red Cell Distribution Width 14.6 H Platelet Count 585 H Mean Platelet Volume 9.1 Neutrophils % 41.8 Lymphocytes % 33.5 Monocytes % 20.4 H Eosinophils % 1.3 Basophils % 0.4 Nucleated Red Blood Cells % 0.0 Neutrophils # 2.2 Lymphocytes # 1.8 Monocytes # 1.1 H Eosinophils # 0.1 Basophils # 0.0 Nucleated Red Blood Cells # 0.0 Sodium Level 133 L Potassium Level 3.2 L Chloride Level 100 Carbon Dioxide Level 27 Anion Gap 9 Blood Urea Nitrogen 5 L Creatinine 0.37 L Glucose Level 83 Calcium Level 7.2 L Rheumatoid Factor Screen NEGATIVE Medications Medications Current Medications Ondansetron HCl (Zofran Inj) 4 mg Q6H PRN IV NAUSEA AND/OR VOMITING; Start 08/03/17 at 16:00 Acetaminophen (Tylenol Tab) 650 mg Q6H PRN PO PAIN LEVEL 1-3 OR FEVER Last administered on 08/06/17 19:53; Admin Dose 650 MG; Start 08/03/17 at 16:00 Acetaminophen/ Hydrocodone Bitart ([place] (5/325)) 1 tab Q6H PRN PO PAIN LEVEL 4 -6 Last administered on 08/06/17 08:03; Admin Dose 1 TAB; Start 08/03/17 at 16: 00 Sertraline HCl (Zoloft) 50 mg DAILY PO Last administered on 08/09/17 08:47; Admin Dose 50 MG; Start 08/04/17 at 09:00 Ferrous Sulfate (Ferrous Sulfate (Ec)) 325 mg DAILY PO Last administered on 08:47; Admin Dose 325 MG; Start 08/04/17 at 10:30 Atorvastatin Calcium (Lipitor) 20 mg HS PO Last administered on 08/08/17 21: 21; Admin Dose 20 MG; Start 08/05/17 at 21:00 Amoxicillin (Amoxicillin) 500 mg Q8 PO Last administered on 08/09/17 13:55; Admin Dose 500 MG; Start 08/06/17 at 14:00 Famotidine (Pepcid) 20 mg DAILY PO Last administered on 08/09/17 08:47; Admin Dose 20 MG; Start 08/09/17 at 09:00 Levothyroxine Sodium (Synthroid) 25 mcg DAILY@06 PO Last administered on 05:36; Admin Dose 25 MCG; Start 08/09/17 at 06:00 FOSTER SCHAFER NP Aug 09, 2017 17:21
[2017-08-09 19:26] VITALS: BP 135/78; RESP 20
[2017-08-09] MEDS: ATORVASTATIN 20 MG TAB PO SCH (21:08)
[2017-08-10 01:29] VITALS: BP 134/72; RESP 20
[2017-08-10] MEDS: AMOXICILLIN 500 MG CAP PO SCH ×2 (05:18→13:04)
[2017-08-10] MEDS: LEVOTHYROXINE 25 MCG TAB PO SCH (05:18)
[2017-08-10 06:19] LABS: BASOPHIL # 0.1 10^3/ul (0.0-0.1); BASOPHILS % 0.9 % (0.0-2.0); EOSINOPHILS # 0.1 10^3/ul (0.0-0.5); EOSINOPHILS % 1.8 % (0.0-7.0); HEMATOCRIT 33.3 % (37.0-47.0); HEMOGLOBIN 10.3 g/dl (12.0-16.0); LYMPHOCYTES # 2.1 10^3/ul (0.8-2.9); LYMPHOCYTES % 38.9 % (15.0-51.0); MEAN CORPUSCULAR HEMOGLOBIN 26.6 pg (29.0-33.0); MEAN CORPUSCULAR HGB CONC 30.9 g/dl (32.0-37.0); MEAN PLATELET VOLUME 9.1 fl (7.4-10.4); MONOCYTE # 1.1 10^3/ul (0.3-0.9); NEUTROPHIL # 1.9 10^3/ul (1.6-7.5); NEUTROPHILS % 34.6 % (39.0-77.0); PLATELET COUNT 582 10^3/UL (140-415); RED BLOOD COUNT 3.87 10^6/ul (4.20-5.40); RED CELL DISTRIBUTION WIDTH 14.9 % (11.5-14.5); WHITE BLOOD COUNT 5.5 10^3/ul (4.8-10.8)
[2017-08-10 06:28] LABS: MONOCYTES % 20.7 % (0.0-11.0); POSITIVE DIFF @See below
[2017-08-10 06:32] LABS: MAGNESIUM 1.9 mg/dl (1.7-2.5); PHOSPHORUS 4.1 mg/dl (2.5-4.9)
[2017-08-10 06:32] LABS: CALCIUM 7.6 mg/dl (8.4-10.2); CREATININE 0.37 mg/dl (0.44-1.00); POTASSIUM 3.6 mmol/L (3.5-5.1)
[2017-08-10 07:28] VITALS: BP 120/69; RESP 17
[2017-08-10] MEDS: FERROUS SULFATE (EC) 325 MG TAB PO SCH (08:35)
[2017-08-10] MEDS: SERTRALINE 50 MG TAB PO SCH (08:35)
[2017-08-10] MEDS: FAMOTIDINE 20 MG TAB PO SCH (08:35)
[2017-08-10] MEDS ORDERED: LEVO50TA74 PO (10:43)
[2017-08-10] MEDS ORDERED: ATOR20TA65 PO (10:43)
[2017-08-10] MEDS ORDERED: AMOX500C2 PO (10:43)
[2017-08-10] MEDS ORDERED: FER325 PO (10:43)
--- NOTE | 2017-08-10 10:46 | PDOCDIS ---
Discharge Instructions DIAGNOSIS Discharge Diagnosis 1. S/P severe sepsis with underlying septic shock secondary to urinary tract infection. 2. Hyponatremia. 3. Unintentional weight loss 4. Anemia. 5. Transaminitis without hyperbilirubinemia. 6. Depression. 7. Hypothyroidism. 8. Dyslipidemia. 9. Protein calorie malnutrition. CONDITION Patient Condition: Stable HOME CARE INSTRUCTIONS: Special Diet: regular diet FOLLOW UP/APPOINTMENTS Follow-up Plan 1. Follow up with your primary care provider in one week 2. Follow up with your primary care provider for your unintentional weight loss 3. Follow up with Dr. Quynh Rivera in 2 weeks FLOYD PABON Aug 10, 2017 10:46
--- NOTE | 2017-08-10 14:57 | CONS ---
Date/Time of Note Date/Time of Note DATE: 08/10/17 TIME: 14:56 Assessment/Plan Assessment/Plan Chief Complaint/Hosp Course SUBJECTIVE: Alert, feels good. No fevers, looks comfortable. MICROBIOLOGY: Blood culture on admission grew coagulase-negative staph species , one set. Urine culture + Strep. Influenza swab was negative. ANTIMICROBIALS: Amoxicillin PHYSICAL EXAMINATION: GENERAL: Well-nourished, well-developed, middle-aged woman who is alert, in no distress. HEENT: Head atraumatic, normocephalic. Sclerae anicteric. Buccal mucosa pink. NECK: Supple. CHEST: Rise symmetrical. Breath sounds clear. HEART: S1, S2. ABDOMEN: Soft. Bowel tones present. EXTREMITIES: Without cyanosis or edema. ASSESSMENT: 1. Resolving sepsis status post shock. 2. UTI 2. Coagulase-negative staph bacteremia, cw contaminant. 3. Anemia and transaminitis with CT of the abdomen revealed no acute abnormality. PLAN: The patient remains stable, repeat bld cx negative, no vegetations per 2D ECHO, continue abx for 3 more days [facility] staff/pt Problems: Consultation Date/Type/Reason Admit Date/Time Aug 03, 2017 at 15:38 Type of Consultation: id Exam/Review of Systems Vital Signs Vitals Vital Signs Date Time Temp Pulse Resp B/P Pulse Ox O2 Delivery O2 Flow Rate FiO2 08/10/17 07:28 98.3 76 17 120/69 100 08/08/17 08:00 Room Air Intake and Output 08/09/17 08/09/17 08/10/17 15:00 23:00 07:00 Intake Total 720 ml Output Total 600 ml Balance 120 ml Results Result Diagram: 08/10/17 0526 08/10/17 0525 Results 24 hrs Laboratory Tests Test 08/10/17 05:25 08/10/17 05:26 Sodium Level 134 L Potassium Level 3.6 Chloride Level 101 Carbon Dioxide Level 30 Anion Gap 7 L Blood Urea Nitrogen 5 L Creatinine 0.37 L Glucose Level 90 Calcium Level 7.6 L White Blood Count 5.5 Red Blood Count 3.87 L Hemoglobin 10.3 L Hematocrit 33.3 L Mean Corpuscular Volume 86.0 Mean Corpuscular Hemoglobin 26.6 L Mean Corpuscular Hemoglobin Concent 30.9 L Red Cell Distribution Width 14.9 H Platelet Count 582 H Mean Platelet Volume 9.1 Neutrophils % 34.6 L Lymphocytes % 38.9 Monocytes % 20.7 H Eosinophils % 1.8 Basophils % 0.9 Nucleated Red Blood Cells % 0.0 Neutrophils # 1.9 Lymphocytes # 2.1 Monocytes # 1.1 H Eosinophils # 0.1 Basophils # 0.1 Nucleated Red Blood Cells # 0.0 Phosphorus Level 4.1 Magnesium Level 1.9 Medications Medications Current Medications Ondansetron HCl (Zofran Inj) 4 mg Q6H PRN IV NAUSEA AND/OR VOMITING; Start 08/03/17 at 16:00 Acetaminophen (Tylenol Tab) 650 mg Q6H PRN PO PAIN LEVEL 1-3 OR FEVER Last administered on 08/06/17 19:53; Admin Dose 650 MG; Start 08/03/17 at 16:00 Acetaminophen/ Hydrocodone Bitart ([place] (5/325)) 1 tab Q6H PRN PO PAIN LEVEL 4 -6 Last administered on 08/06/17 08:03; Admin Dose 1 TAB; Start 08/03/17 at 16: 00 Sertraline HCl (Zoloft) 50 mg DAILY PO Last administered on 08/10/17 08:35; Admin Dose 50 MG; Start 08/04/17 at 09:00 Ferrous Sulfate (Ferrous Sulfate (Ec)) 325 mg DAILY PO Last administered on 08:35; Admin Dose 325 MG; Start 08/04/17 at 10:30 Atorvastatin Calcium (Lipitor) 20 mg HS PO Last administered on 08/09/17 21: 08; Admin Dose 20 MG; Start 08/05/17 at 21:00 Amoxicillin (Amoxicillin) 500 mg Q8 PO Last administered on 08/10/17 13:04; Admin Dose 500 MG; Start 08/06/17 at 14:00 Famotidine (Pepcid) 20 mg DAILY PO Last administered on 08/10/17 08:35; Admin Dose 20 MG; Start 08/09/17 at 09:00 Levothyroxine Sodium (Synthroid) 25 mcg DAILY@06 PO Last administered on 05:18; Admin Dose 25 MCG; Start 08/09/17 at 06:00 FOSTER SCHAFER NP Aug 10, 2017 14:57
[2017-08-12 18:22] LABS: ANA SCREEN POSITIVE (NEGATIVE)
== END 2017-08-10 15:00 | disposition home or self-care (01) | DRG 871 ==
LOC: E/R 11:12 → ICU 15:38 → MS2 08-04 15:25
PROVIDERS: ADMIT Internal Medicine; ATTEND Internal Medicine
DX: A41.1 Sepsis due to other specified staphylococcus (principal); R65.21 Severe sepsis with septic shock; E43 Unspecified severe protein-calorie malnutrition; E87.2 Acidosis; E87.1 Hypo-osmolality and hyponatremia; Z68.1 Body mass index [BMI] 19.9 or less, adult; N39.0 Urinary tract infection, site not specified; R65.20 Severe sepsis without septic shock; E03.9 Hypothyroidism, unspecified; R42 Dizziness and giddiness; R27.0 Ataxia, unspecified; G47.10 Hypersomnia, unspecified; D50.9 Iron deficiency anemia, unspecified
CPT/HCPCS: 36415; 70450; 71010; 71275; 74176; 80048; 80053; 80061; 80202; 80307; 81001; 82105; 82150; 82270; 82378; 82550; 82553; 82607; 82728; 82746; 83036; 83540; 83605; 83690; 83735; 83880; 83930; 83935; 84100; 84300; 84439; 84443; 84484; 84560; 85025; 85610; 85651; 85730; 86038; 86140; 86301; 86304; 86430; 86703; 86704; 86709; 86803; 87040; 87081; 87086; 87340; 87400; 90686; 93005; 93306; 96365; 96366; 96368; 96375; 96376; 97110; 97161; 97535; J0692; J1650; J3370; J7030; J7050; Q9967